=== PATIENT | male | born 1940 | race Caucasian/White ===

== ENCOUNTER 2017-02-12 16:09 | Inpatient (IN) | payer BC, OTHER ==
[~2017-02-12] VITALS: Ht 180.3 cm; Wt 83.0 kg
[2017-02-12] MEDS ORDERED: POTA10CA28 PO (16:34)
[2017-02-12] MEDS ORDERED: HYG25 PO (16:34)
[2017-02-12] MEDS ORDERED: LISI-725 PO (16:34)
[2017-02-12] MEDS ORDERED: WARF5TAB7 PO (16:34)
[2017-02-12] MEDS ORDERED: OMEP20TA PO (16:34)
[2017-02-12] MEDS ORDERED: INSU100I SC (16:34)
[2017-02-12] MEDS ORDERED: SERT50TA PO (16:34)
[2017-02-12] MEDS ORDERED: [UNRECOGNIZED DRUG - CODE] PO (16:34)
[2017-02-12] MEDS ORDERED: ASPI81TA28 PO (16:34)
[2017-02-12] MEDS ORDERED: SNTO30 TOP (16:34)
[2017-02-12] MEDS ORDERED: INSDGIPEN SC (16:34)
[2017-02-12] MEDS ORDERED: METF1000 PO (16:34)
[2017-02-12 17:22] LABS: BASO % 0.3 %; BASO ABS # 0.02 K/uL (0-0.2); COMPLETE YES; EOS % 2.4 %; HEMATOCRIT 37.1 % (42-52); IG% 0.4 %; LYMPH % 11.2 %; LYMPH ABS # 0.89 K/uL (1.2-3.4); MEAN CELL VOLUME 89.8 fL (80-100); MEAN CORPUSCULAR HGB CONC 34.5 g/dl (32-36); MEAN PLATELET VOLUME 10.4 fL (7.4-10.4); MONO % 9.2 %; NEUT % 76.5 %; PLATELET COUNT 360 K/uL (130-400); RED BLOOD COUNT 4.13 M/uL (4.7-6.1); WHITE BLOOD COUNT 7.97 K/uL (4.8-10.8)
[2017-02-12 17:41] LABS: BUN/CREATININE RATIO 18.6 (10-20); CALCIUM 8.6 mg/dl (8.5-10.1); CREATININE 1.2 mg/dl (0.60-1.40)
--- NOTE | 2017-02-12 17:41 | DIAGNOSTIC IMAGING REPORT ---
RIGHT FOOT MIN 3 VIEWS ROUTINE CLINICAL HISTORY: r foot 1st toe and 5th necrosis Right pain COMPARISON: None. DISCUSSION: Prior amputation distal phalanx great toe generalized degenerative change. Soft tissue vascular calcification. Small heel spur. No lytic or blastic process. No destructive process. IMPRESSION: Degenerative and postoperative changes including amputation distal phalanx great toe. No acute bony abnormality The above report was generated using voice recognition software. It may contain grammatical, syntax or spelling errors. Electronically signed by: Haseeb Carlson M.D. 02/12/2017 5:40 PM Dictated Date/Time: 02/12/2017 5:37 PM
[2017-02-12] MEDS ORDERED: VANCOMYCIN INJ 1,600 MG in SODIUM CHLORIDE 0.9% 500ML 500 ML IV STA (17:48)
[2017-02-12] MEDS ORDERED: ONDANSETRON INJ 2 MG/ML 2 ML VIAL IV PRN (19:30)
[2017-02-12] MEDS ORDERED: ACETAMINOPHEN 325 MG TAB PO PRN (19:30)
[2017-02-12] MEDS ORDERED: CMD5 PO (19:37)
[2017-02-12] MEDS ORDERED: LEVO1TAB33 PO (19:37)
[2017-02-12 19:40] VITALS: BP 129/78; PULSE 62; TEMP 36.6; O2SAT 97; Ht 180.3 cm; Wt 83.0 kg
[2017-02-12] MEDS ORDERED: GLUCAGON FOR INJ 1 MG VIAL SQ PRN (19:45)
[2017-02-12] MEDS ORDERED: GLUCOSE 40% GEL 15 GM TUBE PO PRN (19:45)
[2017-02-12] MEDS ORDERED: GLUCOSE 10 TABS/TUBE PO PRN (19:45)
[2017-02-12] MEDS ORDERED: DEXTROSE 50% 50 ML SYR IV PRN (19:45)
[2017-02-12 19:46] LABS: INR 2.1 (0.9-1.1); PROTHROMBIN TIME (PATIENT) 23.5 SECONDS (9.0-12.0)
--- NOTE | 2017-02-12 20:23 | History and Physical ---
History & Physical Date & Time of Service: Feb 12, 2017 at 19:38 Chief Complaint: Doc Referred For Iv Fluids,Infected Right Foot Primary Care Physician: Jennifer Ramires D.O. History of Present Illness Source: patient, spouse, clinic records This is a 76 y/o male with PMH of DM 2, PAD, hx left AKA for nonhealing wound, history of CVA, factor V Leiden, hx DVT on Coumadin, and other problems listed below who was sent to the ED by PCP Dr. Ramires for right foot necrosis. Patient underwent right 1st toe partial amputation by lifestyle director Dr. Cornelius at a surgical center in December 2016. states the the wound base turned black after the procedure with associated erythema, pain, swelling. Symptoms did not improve on Levaquin and was therefore hospitalized at [facility] from Feb 01- where he received IV antibiotics. states he was advised to see his vascular surgeon Dr. Davidson. Appointment was made for this FridayFeb 14. He was discharged on Levaquin, which was completed. Pt's states the toe was worsening and therefore he was started on another course of Levaquin called in by lifestyle director Dr. Lyle, but still has no improvement. His also notes necrotic area with surrounding erythema overlying right 5th distal metatarsal starting about 1.5 weeks ago. Has associated sweats, but did not take temp at home. Pt was seen by PCP Dr. Ramires today and sent to ER for further evaluation. He is wheelchair bound. Does not use prosthesis. Has occasional dry cough. BSG's have been low 100's at home. Denies chest pain, SOB, vomiting, change in bowel or bladder movements. reports recently discovered heart murmur which has not been evaluated by echo. Has h/o MRSA. Past Medical/Surgical History Medical Problems: (1) Chronic anticoagulation Status: Chronic (2) Compression fracture of spine Status: Chronic (3) CVA (cerebral vascular accident) Permanent Comment: embolic per records, 12/2016 Status: Chronic (4) Dementia Status: Chronic (5) Depression Status: Chronic (6) Diabetic neuropathy Status: Chronic (7) DM type 2 (diabetes mellitus, type 2) Status: Chronic (8) Dyslipidemia Status: Chronic (9) Factor V Leiden Status: Chronic (10) GERD (gastroesophageal reflux disease) Status: Chronic (11) History of DVT (deep vein thrombosis) Status: Chronic (12) HTN (hypertension) Status: Chronic (13) Hyperlipidemia Status: Chronic (14) Osteoarthritis Status: Chronic Surgical Problems: (1) History of left above knee amputation Permanent Comment: for nonhealing wound 05/2016 Status: Chronic (2) S/P peripheral artery angioplasty Permanent Comment: left anterior tibial artery 02/27/16 Status: Chronic Family History Diabetes mellitus SISTER FH: CAD (coronary artery disease) BROTHER Stroke FATHER MOTHER Social History Smoking Status: Never Smoker Alcohol Use: none Drug Use: none Marital Status: Housing status: lives with significant other Multi-Drug Resistant Organisms History of MDRO: No Allergies Coded Allergies: No Known Allergies (Unverified , 02/12/17) Home Medications Scheduled Aspirin (Aspirin Ec), 81 MG PO DAILY Chlorthalidone (Chlorthalidone), 25 MG PO DAILY Donepezil Hydrochloride (Donepezil Hcl), 23 MG PO DAILY Insulin Glargine (Lantus Solostar), 20 UNITS SC HS Insulin Lispro (Human) (Humalog), 6 UNITS SC AC Levofloxacin (Levaquin), 500 MG PO DAILY Lisinopril (Zestril), 20 MG PO DAILY Metformin Hcl (Glucophage), 1,000 MG PO BID Omeprazole (Omeprazole), 20 MG PO BID Potassium Chloride (Micro-K Ext Rel), 10 MEQ PO DAILY Sertraline (Zoloft), 50 MG PO DAILY Warfarin Sod (Jantoven), 5 MG PO DIRECTED Warfarin Sod (Coumadin), 7.5 MG PO UD Review of Systems Ten systems reviewed and negative except as noted in HPI. Physical Exam Vital Signs Date Time Temp Pulse Resp B/P (MAP) Pulse Ox O2 Delivery O2 Flow Rate FiO2 02/12/17 18:17 65 18 130/62 95 Room Air 02/12/17 16:15 36.4 74 16 150/76 94 General Appearance: WD/WN, no apparent distress Head: normocephalic, atraumatic Eyes: normal inspection, EOMI, sclerae normal ENT: hearing grossly normal, pharynx normal Neck: supple, trachea midline Respiratory/Chest: lungs clear, normal breath sounds, no respiratory distress, no accessory muscle use Cardiovascular: regular rate, rhythm, + systolic murmur Abdomen/GI: normal bowel sounds, non tender, soft Extremities/Musculoskelatal: no pedal edema, + pertinent finding (s/p left AKA , scar well healed. RLE no pretibial edema or calf tenderness. RLE warm, right DP pulse 1+) Neurologic/Psych: alert, normal mood/affect, oriented x 3 Skin: + pertinent finding (right 1st toe partially amputated, sutures in place , distal stump of toe with necrosis, + surrounding erythema and tenderness. lateral aspect of 5th distal metatarsal with necrosis and surrounding erythema and tenderness. no active drainage from either site.) Diagnostics Laboratory Results Results Past 24 Hours Test 02/12/17 17:00 Range/Units White Blood Count 7.97 4.8-10.8 K/uL Red Blood Count 4.13 4.7-6.1 M/uL Hemoglobin 12.8 14.0-18.0 g/dL Hematocrit 37.1 42-52 % Mean Corpuscular Volume 89.8 80-100 fL Mean Corpuscular Hemoglobin 31.0 25-34 pg Mean Corpuscular Hemoglobin Concent 34.5 32-36 g/dl Platelet Count 360 130-400 K/uL Mean Platelet Volume 10.4 7.4-10.4 fL Neutrophils (%) (Auto) 76.5 % Lymphocytes (%) (Auto) 11.2 % Monocytes (%) (Auto) 9.2 % Eosinophils (%) (Auto) 2.4 % Basophils (%) (Auto) 0.3 % Neutrophils # (Auto) 6.11 1.4-6.5 K/uL Lymphocytes # (Auto) 0.89 1.2-3.4 K/uL Monocytes # (Auto) 0.73 0.11-0.59 K/uL Eosinophils # (Auto) 0.19 0-0.5 K/uL Basophils # (Auto) 0.02 0-0.2 K/uL RDW Standard Deviation 45.6 36.4-46.3 fL RDW Coefficient of Variation 14.0 11.5-14.5 % Immature Granulocyte % (Auto) 0.4 % Immature Granulocyte # (Auto) 0.03 0.00-0.02 K/uL Sodium Level 139 136-145 mmol/L Potassium Level 4.0 3.5-5.1 mmol/L Chloride Level 104 98-107 mmol/L Carbon Dioxide Level 31 21-32 mmol/L Anion Gap 4.0 3-11 mmol/L Blood Urea Nitrogen 22 7-18 mg/dl Creatinine 1.20 0.60-1.40 mg/dl Est Creatinine Clear Calc Drug Dose 55.8 ml/min Estimated GFR () 67.7 Estimated GFR (Non- 58.4 BUN/Creatinine Ratio 18.6 10-20 Random Glucose 220 70-99 mg/dl Calcium Level 8.6 8.5-10.1 mg/dl Diagnostic Radiology RIGHT FOOT MIN 3 VIEWS ROUTINE CLINICAL HISTORY: r foot 1st toe and 5th necrosis Right pain COMPARISON: None. DISCUSSION: Prior amputation distal phalanx great toe generalized degenerative change. Soft tissue vascular calcification. Small heel spur. No lytic or blastic process. No destructive process. IMPRESSION: Degenerative and postoperative changes including amputation distal phalanx great toe. No acute bony abnormality Impression Assessment and Plan RIGHT FOOT NECROSIS, CELLULITIS In setting of PAD, DM 2 (controlled in past, repeat A1c in AM) S/p right 1st toe partial amputation by podiatry Dr. Cornelius in December 2016, recently hospitalized at [facility] for IV abx, failed outpatient tx with Levaquin Afebrile, no leukocytosis X-ray shows no evidence of bony involvement IV vancomycin given in ER Will continue vancomycin and add Zosyn Check wound culture Check arterial doppler Consult ortho, discussed with Dr. Coronado- patient will be seen in AM HEART MURMUR Recently discovered per family, no recent echo done Check echo HYPERTENSION BP is stable Continue chlorthalidone and lisinopril DM TYPE 2 A1c was 6.3 in 10/2016 Hold metformin Continue home Lantus Novolog sliding scale HISTORY OF CVA Continue aspirin, statin DEMENTIA Continue donepezil HX DVT, FACTOR V LEIDEN, HX EMBOLIC STROKE PER RECORDS DVT PROPHYLAXIS On Coumadin, INR 2.1- will hold Coumadin tomorrow AM until ortho evaluates in case patient needs a procedure CODE STATUS Full no mech ventilation per my discussion with patient and at bedside DISPOSITION Med/ surg Lives with Chanel Justice (wishes to be updated by phone at [phone]) Follows with Dr. Ramires for primary care Patient seen in collaboration with Dr. Ward. Please see his addendum. Agree with above H and P. Briefly 76M presents with infected right big toe amputation site and also black eschar on right lateral foot. No fevers. No pain. No sob or chest pain. Hemodynamics stable. 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 Right big toe amputation site blackened on top and erythema below.non tender a/p Infected right toe amputation site gangrenous and necrotic Started on iv abx f/u cx ortho consulted will follow right lower extremity arterial US DM Lantus and iss will monitor VTE Prophylaxis VTE Risk Assessment Done? Y/N: Yes Risk Level: Moderate Given or contraindicated: Warfarin (Coumadin)
[2017-02-12] MEDS ORDERED: PIPERACILL/TAZOBAC IV 3.375 GM in DEXTROSE 5% 100ML IV ONE (20:30)
--- NOTE | 2017-02-12 20:39 | EMERGENCY ROOM VISIT NOTE ---
History Report prepared by Scott: Cecil Muller Under the Supervision of: Dr. Guicho Greene D.O. First contact with patient: 16:27 Chief Complaint: WOUND INFECTION Stated Complaint: DOC REFERRED FOR IV FLUIDS,INFECTED RIGHT FOOT History of Present Illness The patient is a 76 year old male who presents to the Emergency Room with complaints of a worsening infected right great toe for the past three weeks. The patient states that it happened after an amputation of the distal toe due to diabetes. The patient states that his blood sugars are well controlled, and he is currently on Levaquin. The patient states that the toe started to become black soon after the surgery. Pt denies headache, change in vision, fevers, chest pain, shortness of breath, nausea, vomiting, diarrhea, and pain with urination. Source of History: patient Onset: three weeks ago Position: toe(s) (right great toe) Quality: other (infection) Timing: worsening Review of Systems See HPI for pertinent positives & negatives. A total of 10 systems reviewed and were otherwise negative. Past Medical & Surgical Medical Problems: (1) Cellulitis (2) Chronic anticoagulation (3) Compression fracture of spine (4) CVA (cerebral vascular accident) (5) Dementia (6) Depression (7) Diabetic neuropathy (8) DM type 2 (diabetes mellitus, type 2) (9) Dyslipidemia (10) Factor V Leiden (11) GERD (gastroesophageal reflux disease) (12) History of DVT (deep vein thrombosis) (13) HTN (hypertension) (14) Hyperlipidemia (15) Osteoarthritis Surgical Problems: (1) History of left above knee amputation (2) S/P peripheral artery angioplasty Social History Smoking Status: Never Smoker Marital Status: Housing Status: lives with family Occupation Status: retired Current/Historical Medications Scheduled Aspirin (Aspirin Ec), 81 MG PO DAILY Chlorthalidone (Chlorthalidone), 25 MG PO DAILY Donepezil Hydrochloride (Donepezil Hcl), 23 MG PO DAILY Insulin Glargine (Lantus Solostar), 20 UNITS SC HS Insulin Lispro (Human) (Humalog), 6 UNITS SC AC Levofloxacin (Levaquin), 500 MG PO DAILY Lisinopril (Zestril), 20 MG PO DAILY Metformin Hcl (Glucophage), 1,000 MG PO BID Omeprazole (Omeprazole), 20 MG PO BID Potassium Chloride (Micro-K Ext Rel), 10 MEQ PO DAILY Sertraline (Zoloft), 50 MG PO DAILY Warfarin Sod (Jantoven), 5 MG PO DIRECTED Warfarin Sod (Coumadin), 7.5 MG PO UD Allergies Coded Allergies: No Known Allergies (Unverified , 02/12/17) Physical Exam Vital Signs Date Time Temp Pulse Resp B/P (MAP) Pulse Ox O2 Delivery O2 Flow Rate FiO2 02/12/17 18:17 65 18 130/62 95 Room Air 02/12/17 16:15 36.4 74 16 150/76 94 Physical Exam GENERAL: Sitting up in bed, alert, well appearing, well nourished, no distress, non-toxic EYE EXAM: normal conjunctiva, PERRL and EOM's grossly intact OROPHARYNX: no exudate, no erythema, lips, buccal mucosa, and tongue normal and mucous membranes are moist NECK: supple, no nuchal rigidity, no adenopathy, non-tender LUNGS: Clear to auscultation. Normal chest wall mechanics HEART: no murmurs, S1 normal and S2 normal ABDOMEN: abdomen soft, non-tender, normo-active bowel sounds, no masses, no rebound or guarding. UPPER EXTREMITIES: upper extremities are grossly normal. LOWER EXTREMITIES: Right lower extremity with amputation of the first toe with a necrotic base and clear drainage. Sutures in place. Right fifth digit with necrosis at the distal aspect of the MTP with surrounding erythema. Left above knee amputation. NEURO EXAM: Normal sensorium, cranial nerves II-XII grossly intact, normal speech, no gross weakness of arms. Medical Decision & Procedures ER Provider Diagnostic Interpretation: Radiology results as stated below per my review and the radiologist's interpretation: RIGHT FOOT MIN 3 VIEWS ROUTINE CLINICAL HISTORY: r foot 1st toe and 5th necrosis Right pain COMPARISON: None. DISCUSSION: Prior amputation distal phalanx great toe generalized degenerative change. Soft tissue vascular calcification. Small heel spur. No lytic or blastic process. No destructive process. IMPRESSION: Degenerative and postoperative changes including amputation distal phalanx great toe. No acute bony abnormality The above report was generated using voice recognition software. It may contain grammatical, syntax or spelling errors. Electronically signed by: Haseeb Carlson M.D. 02/12/2017 5:40 PM Dictated Date/Time: 02/12/2017 5:37 PM Laboratory Results 02/12/17 17:00 Red Blood Count 4.13, Mean Corpuscular Volume 89.8, Mean Corpuscular Hemoglobin 31.0, Mean Corpuscular Hemoglobin Concent 34.5, Mean Platelet Volume 10.4, Neutrophils (%) (Auto) 76.5, Lymphocytes (%) (Auto) 11.2, Monocytes (%) (Auto) 9.2, Eosinophils (%) (Auto) 2.4, Basophils (%) (Auto) 0.3, Neutrophils # (Auto) 6.11, Lymphocytes # (Auto) 0.89, Monocytes # (Auto) 0.73, Eosinophils # (Auto) 0.19, Basophils # (Auto) 0.02 02/12/17 17:00 Test 02/12/17 17:00 White Blood Count 7.97 K/uL (4.8-10.8) Red Blood Count 4.13 M/uL (4.7-6.1) Hemoglobin 12.8 g/dL (14.0-18.0) Hematocrit 37.1 % (42-52) Mean Corpuscular Volume 89.8 fL (80-100) Mean Corpuscular Hemoglobin 31.0 pg (25-34) Mean Corpuscular Hemoglobin Concent 34.5 g/dl (32-36) Platelet Count 360 K/uL (130-400) Mean Platelet Volume 10.4 fL (7.4-10.4) Neutrophils (%) (Auto) 76.5 % Lymphocytes (%) (Auto) 11.2 % Monocytes (%) (Auto) 9.2 % Eosinophils (%) (Auto) 2.4 % Basophils (%) (Auto) 0.3 % Neutrophils # (Auto) 6.11 K/uL (1.4-6.5) Lymphocytes # (Auto) 0.89 K/uL (1.2-3.4) Monocytes # (Auto) 0.73 K/uL (0.11-0.59) Eosinophils # (Auto) 0.19 K/uL (0-0.5) Basophils # (Auto) 0.02 K/uL (0-0.2) RDW Standard Deviation 45.6 fL (36.4-46.3) RDW Coefficient of Variation 14.0 % (11.5-14.5) Immature Granulocyte % (Auto) 0.4 % Immature Granulocyte # (Auto) 0.03 K/uL (0.00-0.02) Prothrombin Time 23.5 SECONDS (9.0-12.0) Prothromb Time International Ratio 2.1 (0.9-1.1) Anion Gap 4.0 mmol/L (3-11) Est Creatinine Clear Calc Drug Dose 55.8 ml/min Estimated GFR () 67.7 Estimated GFR (Non- 58.4 BUN/Creatinine Ratio 18.6 (10-20) Calcium Level 8.6 mg/dl (8.5-10.1) Laboratory results per my review. Medications Administered Medications (Trade) Dose Ordered Sig/Jose Route Start Time Stop Time Status Last Admin Dose Admin Vancomycin HCl 1600 mg/Sodium Chloride 532 ml @ 200 mls/hr ONE STAT IV 02/12/17 17:48 02/12/17 20:27 DC 02/12/17 18:13 200 MLS/HR ED Course ED COURSE: Vital signs were reviewed and showed situational hypertension The patients medical record was reviewed The above diagnostic studies were performed and reviewed. ED treatments and interventions as stated above. 1627: The patient was evaluated in room C3. A complete history and physical examination was performed. 1748: Vancomycin HCl 1600mg/ Sodium Chloride 532ml @ 200mls/hr 1751: Upon reevaluation, the patient is doing well.I discussed my findings with the patient and he understands and agrees with the treatment plan. Based on the patients age, coexisting illnesses, exam and lab findings the decision to treat as an inpatient was made. The patient remained stable while under my care. The patient will be evaluated for further management. 1808: I reviewed the patient's case with Rina Browning PA-C. She will evaluate the patient for further management. Medical Decision Differential diagnosis includes etiologies such as cellulitis, abscess, MRSA infection, DVT, necrotizing fasciitis, dermatitis, drug eruption, as well as others were entertained. Patient is a 76-year-old male that presents to ER for necrosis on his right lower extremity. Patient is a diabetic and had a partial amputation of his right first toe. Patient has been on antibiotics. Toe has been becoming more necrotic surrounding erythema. Patient now has erythema and necrosis at the distal aspect of his fifth metatarsal. CBC able BMP is unremarkable. INR is normal at 2.1. X-ray shows no obvious osteo. With the necrosis and surrounding erythema his given IV vancomycin and admitted to internal medicine for further evaluation by orthopedics. Patient did not want to follow-up with [place] any longer. Medication Reconcilliation Current Medication List: was personally reviewed by me Blood Pressure Screening Patient's blood pressure: Elevated blood pressure Blood pressure disposition: Elevated BP felt to be situational Consults Time Called: 1750 Consulting Physician: Rina Browning PA-C Returned Call: 1808 I reviewed the patient's case with Rina Browning PA-C. She will evaluate the patient for further management. Impression Primary Impression: Cellulitis Additional Impression: Toe necrosis Scribe Attestation The scribe's documentation has been prepared under my direction and personally reviewed by me in its entirety. I confirm that the note above accurately reflects all work, treatment, procedures, and medical decision making performed by me. Departure Information Dispostion Being Evaluated By Hospitalist Referrals Jennifer Ramires D.O. (PCP) Patient Instructions My [facility] Problem Qualifiers Primary Impression: Cellulitis Site of cellulitis: unspecified site Qualified Codes: L03.90 - Cellulitis, unspecified
[2017-02-12] MEDS ORDERED: VANCOMYCIN CONSULT ACTIVE PRN (20:45)
[2017-02-12] MEDS ORDERED: PIPERACILL/TAZOBAC CONSULT ACTIVE PRN (20:45)
[2017-02-12] MEDS: INSULIN ASPART 100 UNITS/ML 3 ML PEN SC SCH (21:00)
--- NOTE | 2017-02-12 22:52 | Pharmacy Progress Note ---
Pharmacy Abx Initial Consult Date of Service Feb 12, 2017. Pharmacy Dosing Scope Date of Consult: 02/12/17 Consultation requested by: Lynn Browning Pharmacy is consulted to continue Vancomycin/Zosyn IV dosing therapy, order appropriate labs and adjust drug dose/frequency. Subjective The patient is a 76 year old male admitted on Feb 12, 2017 at 18:22 with Cellulitis post (R)1st toe partial amputation. 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 He has history of MRSA and hx left AKA for nonhealing wound. Lynn Browning PA consulted pharmacy to dose Vancomycin and Zosyn upon admission. Objective Height (Feet): 5 Height (Inches): 11.00 Weight (Kilograms): 83.000 Vital Signs (Past 12Hrs) Vital Signs Past 12 Hours Date Time Temp Pulse Resp B/P (MAP) Pulse Ox O2 Delivery O2 Flow Rate FiO2 02/12/17 19:40 36.6 62 20 129/78 97 Room Air 02/12/17 19:16 66 18 126/67 96 Room Air 02/12/17 18:17 65 18 130/62 95 Room Air 02/12/17 16:15 36.4 74 16 150/76 94 Lab Results (24Hrs) Laboratory Tests (24 Hours) Test 02/12/17 17:00 White Blood Count 7.97 K/uL (4.8-10.8) Red Blood Count 4.13 M/uL (4.7-6.1) L Hemoglobin 12.8 g/dL (14.0-18.0) L Hematocrit 37.1 % (42-52) L Mean Corpuscular Volume 89.8 fL (80-100) Mean Corpuscular Hemoglobin 31.0 pg (25-34) Mean Corpuscular Hemoglobin Concent 34.5 g/dl (32-36) Platelet Count 360 K/uL (130-400) Mean Platelet Volume 10.4 fL (7.4-10.4) Neutrophils (%) (Auto) 76.5 % Lymphocytes (%) (Auto) 11.2 % Monocytes (%) (Auto) 9.2 % Eosinophils (%) (Auto) 2.4 % Basophils (%) (Auto) 0.3 % Neutrophils # (Auto) 6.11 K/uL (1.4-6.5) Lymphocytes # (Auto) 0.89 K/uL (1.2-3.4) L Monocytes # (Auto) 0.73 K/uL (0.11-0.59) H Eosinophils # (Auto) 0.19 K/uL (0-0.5) Basophils # (Auto) 0.02 K/uL (0-0.2) Risk Factors for Resistance * History of infection with a multidrug-resistant organism: MRSA * Antimicrobial use within the last 90 days -Levaquin PO Assessment & Plan Assessment 76 year old male with necrotic toe infection/cellulitis Plan Vancomycin and Zosyn for treatment of cellulitis Vancomycin IV * Loading dose: 1600 mg (19 mg/kg) * Maintenance dose: 1250mg IV (15 mg/kg) every 16 hours * Goal trough level for cellulitis : 15-20 mcg/mL * Trough level ordered prior to 1800 dose on 02/14/17 Piperacillin/tazobactam * 3.375 g bolus administered over 30 minutes, then 3.375 g IV extended infusion every 8 hours for CrCl greater than 20ml/min Pharmacy will continue to follow and will adjust dose/frequency as necessary. Thank you.
--- NOTE | 2017-02-12 22:59 | DIAGNOSTIC IMAGING REPORT ---
RIGHT ART DOP DUPLEX LW EXT UNI CLINICAL HISTORY: right 1st toe and distal 5th metatarsal necrosis Right ischemia TECHNIQUE: Arterial Doppler: FINDINGS: Limited study technically due to calcified vessels. Waveforms in velocity characteristics of the right thigh are unremarkable. Study of the arterial structures inferior to the near nondiagnostic COMPARISON STUDY: None IMPRESSION: 1. Limited study due to calcified vessels. 2. No significant stenotic process of the thigh arterial structures. 3. Nondiagnostic arterial structures of the arterial structures of the right lower leg due to vascular calcification/incompressibility. The above report was generated using voice recognition software. It may contain grammatical, syntax or spelling errors. Electronically signed by: Haseeb Carlson M.D. 02/12/2017 10:57 PM Dictated Date/Time: 02/12/2017 10:55 PM
[2017-02-12] MEDS: INSULIN GLARGINE SOLOSTAR 100 UNITS/ML 3 ML PEN SC SCH (23:12)
[2017-02-12] MEDS: PANTOprazole SOD 40 MG TAB PO SCH (23:12)
[2017-02-13] VITALS: BP 132/81; PULSE 78; TEMP 36.8; O2SAT 94
[2017-02-13] MEDS: PIPERACILL/TAZOBAC IV 3.375 GM in DEXTROSE 5% 100ML IV SCH ×3 (02:11→18:06)
[2017-02-13 07:00] LABS: HEMATOCRIT 35.7 % (42-52); MEAN CELL VOLUME 89.9 fL (80-100); MEAN CORPUSCULAR HEMOGLOBIN 31.2 pg (25-34); MEAN CORPUSCULAR HGB CONC 34.7 g/dl (32-36); MEAN PLATELET VOLUME 10.7 fL (7.4-10.4); PLATELET COUNT 344 K/uL (130-400); RED BLOOD COUNT 3.97 M/uL (4.7-6.1); WHITE BLOOD COUNT 7.15 K/uL (4.8-10.8)
[2017-02-13] MEDS: PANTOprazole SOD 40 MG TAB PO SCH ×2 (07:01→20:23)
[2017-02-13] MEDS: POTASSIUM CHLORIDE 10 MEQ TABCR PO SCH (07:01)
[2017-02-13] MEDS: LISINOPRIL 20 MG TAB PO SCH (07:02)
[2017-02-13] MEDS: SERTRALINE HCL 50 MG TAB PO SCH (07:02)
[2017-02-13] MEDS: ASPIRIN 81 MG ECTAB PO SCH (07:02)
[2017-02-13] MEDS: CHLORTHALIDONE 25 MG TAB PO SCH (07:02)
[2017-02-13 07:20] LABS: ESTIMATED AVERAGE GLUCOSE 131 mg/dl; HA1C FLAG Normal (Normal)
[2017-02-13 07:23] LABS: INR 2.3 (0.9-1.1); PROTHROMBIN TIME (PATIENT) 25.9 SECONDS (9.0-12.0)
[2017-02-13 07:32] LABS: BUN/CREATININE RATIO 19.6 (10-20); CREATININE 0.96 mg/dl (0.60-1.40); POTASSIUM 3.7 mmol/L (3.5-5.1)
[2017-02-13 07:54] VITALS: BP 132/75; PULSE 62; TEMP 36.6; O2SAT 97
[2017-02-13] MEDS: INSULIN ASPART 100 UNITS/ML 3 ML PEN SC SCH ×4 (09:06→20:06)
[2017-02-13] MEDS: VANCOMYCIN INJ 1,250 MG in SODIUM CHLORIDE 0.9% 250ML 250 ML IV SCH (09:51)
[2017-02-13 11:46] VITALS: O2SAT 97
[2017-02-13] MEDS ORDERED: NURSING DECISION MEDICATION ORDER SCH (12:00)
[2017-02-13] MEDS ORDERED: MICONAZOLE NITRATE POWDER 43 GM EXT PRN (13:00)
--- NOTE | 2017-02-13 13:26 | ECHOCARDIOGRAM REPORT ---
*NOTICE TO RECEIVING LIBERTARIAN AGENCY This information is strictly Confidential and protected under [place] law. [place] law prohibits you from making any further disclosure of this information unless further disclosure is expressly permitted by the written consent of the person to whom it pertains or is authorized by law. A general authorization for the release of medical or other information is not sufficient for this purpose. Hospital accepts no responsibility if the information is made available to any other person, INCLUDING THE PATIENT. Interpretation Summary * Name: FEROZ HICKEY Study Date: 02/13/2017 07:00 AM BP: 132/81 mmHg * Patient Location: [id number]\S\E411\S\1 HR: 78 * : 1940 (M/d/yyyy) Gender: Male Height: 71 in * Age: 76 yrs Ethnicity: CA Weight: 182 lb * Ordering Physician: Rina Browning * Referring Physician: Jennifer Ramires D.O. * Performed By: Ebonie Benavides RDCS * * Reason For Study: MURMURS * BSA: 2.0 m2 * -- Conclusions -- * Doppler and two dimentional ultrasound are discoordinate. Pt. most likely has moderate calcific aortic stenosis. * There is mild concentric left ventricular hypertrophy. * Ejection Fraction = 60-65%. * The right ventricular systolic function is normal. * There is trace mitral regurgitation. Procedure Details * A complete two-dimensional transthoracic echocardiogram was performed (2D, M-mode, Doppler and color flow Doppler). Left Ventricle * The left ventricle is normal in size. * There is mild concentric left ventricular hypertrophy. * Ejection Fraction = 60-65%. * Left ventricular systolic function is normal. Right Ventricle * The right ventricle is normal size. * The right ventricular systolic function is normal. Atria * The left atrial size is normal. * Right atrial size is normal. * The interatrial septum is intact with no evidence for an atrial septal defect. Mitral Valve * The mitral valve leaflets appear thickened, but open well. * There is trace mitral regurgitation. Tricuspid Valve * The tricuspid valve is not well visualized, but is grossly normal. * Significant tricuspid regurgitation is absent. Aortic Valve * Doppler and two dimentional ultrasound are discoordinate. Pt. most likely has moderate calcific aortic stenosis. Great Vessels * The aortic root and proximal ascending aorta are normal sized. Pericardium/Pleural * There is no pericardial effusion. Left Ventricular Diastolic Function * Grade I diastolic dysfunction, (abnormal relaxation pattern). MMode 2D Measurements and Calculations IVSd 1.6 cm IVSs 2.1 cm LVIDd 3.2 cm LVIDs 2.2 cm LVPWd 1.4 cm LVPWs 1.7 cm IVS/LVPW 1.1 FS 32.3 % EDV(Teich) 40.8 ml ESV(Teich) 15.5 ml EF(Teich) 61.9 % EDV(cubed) 32.6 ml ESV(cubed) 10.1 ml EF(cubed) 68.9 % % IVS thick 30.8 % % LVPW thick 20.3 % LV mass(C)d 174.8 grams LV mass(C)dI 86.3 grams/m\S\2 LV mass(C)s 170.4 grams LV mass(C)sI 84.1 grams/m\S\2 SV(Teich) 25.2 ml SI(Teich) 12.5 ml/m\S\2 SV(cubed) 22.5 ml SI(cubed) 11.1 ml/m\S\2 Ao root diam 4.0 cm Ao root area 12.8 cm\S\2 LA dimension 3.7 cm LA/Ao 0.91 LVAd ap4 35.0 cm\S\2 LVLd ap4 9.2 cm EDV(MOD-sp4) 108.4 ml EDV(sp4-el) 113.4 ml LVAs ap4 18.0 cm\S\2 LVLs ap4 7.2 cm ESV(MOD-sp4) 38.0 ml ESV(sp4-el) 38.4 ml EF(MOD-sp4) 65.0 % EF(sp4-el) 66.2 % LVAd ap2 27.9 cm\S\2 LVLd ap2 9.2 cm EDV(MOD-sp2) 69.9 ml EDV(sp2-el) 72.2 ml LVAs ap2 15.0 cm\S\2 LVLs ap2 7.7 cm ESV(MOD-sp2) 24.9 ml ESV(sp2-el) 25.0 ml EF(MOD-sp2) 64.3 % EF(sp2-el) 65.4 % LVLd %diff 0.02 % EDV(MOD-bp) 87.8 ml LVLs %diff 6.9 % ESV(MOD-bp) 31.3 ml EF(MOD-bp) 64.4 % SV(MOD-sp4) 70.4 ml SI(MOD-sp4) 34.8 ml/m\S\2 SV(MOD-sp2) 44.9 ml SI(MOD-sp2) 22.2 ml/m\S\2 SV(MOD-bp) 56.5 ml SI(MOD-bp) 27.9 ml/m\S\2 SV(sp4-el) 75.0 ml SI(sp4-el) 37.0 ml/m\S\2 SV(sp2-el) 47.2 ml SI(sp2-el) 23.3 ml/m\S\2 Doppler Measurements and Calculations MV E max fede 94.9 cm/sec MV A max fede 132.1 cm/sec MV E/A 0.72 MV dec time 0.36 sec Ao V2 max 206.5 cm/sec Ao max PG 17.1 mmHg Ao max PG (full) 12.9 mmHg Ao V2 mean 142.9 cm/sec Ao mean PG 9.5 mmHg Ao mean PG (full) 7.3 mmHg Ao V2 VTI 54.2 cm LV V1 max PG 4.2 mmHg LV V1 mean PG 2.2 mmHg LV V1 max 101.9 cm/sec LV V1 mean 70.1 cm/sec LV V1 VTI 28.6 cm SV(Ao) 692.4 ml SI(Ao) 341.8 ml/m\S\2 TR max fede 132.9 cm/sec
--- NOTE | 2017-02-13 13:53 | ORTHOPEDIC CONSULTATION ---
DATE OF CONSULTATION: 02/12/2017 DATE OF CONSULTATION: 02/12/2017 CHIEF COMPLAINT: Necrosis great toe and fifth metatarsal head area. HISTORY OF PRESENT ILLNESS: This is a longstanding diabetic. 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 He had surgery done by a home companion in [place] 2 weeks ago, was admitted to the hospital here having failed treatment with IV antibiotics in [place] over the last 2 weeks. PHYSICAL EXAMINATION: EXTREMITIES: Reveals sutures remaining in the great toe, but black necrotic skin to the level of the metatarsophalangeal joint. He also has a 1.5 x 3 cm oval area of necrosis about the lateral aspect of the fifth ray at the level of the metatarsal head. ASSESSMENT: Avascular changes right foot. PLAN: We will consult vascular surgery to see if any sort of revascularization procedure is possible, but likely from an orthopedic standpoint the patient will require at least a transmetatarsal amputation. Thank you for the consultation. We will continue to follow.
[2017-02-13 15:01] VITALS: BP 132/79; PULSE 63; TEMP 36.6; O2SAT 95
--- NOTE | 2017-02-13 16:46 | Progress Note ---
Internal Med Progress Note Date of Service: Feb 13, 2017. Provider Documentation: SUBJECTIVE: resting comfortably afebrile no nausea no pain no sob hemodynamics stable OBJECTIVE: Vital Signs-as noted below Exam: General-alert and oriented. Not in distress ENT-normal hearing Neck-no neck masses Lungs-cta b/l no wheezing no crackles present Heart-s1 and s2 heard regular rhythm, no murmurs Abdomen-soft bowel sounds present non tender no distension Extremities s/p Left AKA. Right big toe amputation site blackened and necrotic Neuro-alert and oriented moves extremities Lab data as noted below. ASSESSMENT & PLAN: RIGHT FOOT NECROSIS, CELLULITIS In setting of PAD, DM 2 (controlled in past, repeat A1c in AM) S/p right 1st toe partial amputation by podiatry Dr. Cornelius in December 2016, recently hospitalized at [facility] for IV abx, failed outpatient tx with Levaquin started on iv vanco and Zosyn arterial US unremarkable consulted ortho recommends a transmetatarsal amputation but to await vascular opinion regarding any revascularization. HEART MURMUR Recently discovered per family, no recent echo done echo moderate calccified Ef 60-65% HYPERTENSION BP is stable on chlorthalidone and lisinopril DM TYPE 2 A1c was 6.3 in 10/2016 Holding metformin Contining home Lantus Novolog sliding scale will monitor HISTORY OF CVA on aspirin, statin DEMENTIA on donepezil HX DVT, FACTOR V LEIDEN, HX EMBOLIC STROKE PER RECORDS DVT PROPHYLAXIS On Coumadin, INR 2.3- holding Coumadin for any procedures CODE STATUS Full no mech ventilation per h and p DISPOSITION to be determined Lives with Chanel Justice (wishes to be updated by phone at [phone]) Follows with Dr. Ramires for primary care Vital Signs: Date Time Temp Pulse Resp B/P (MAP) Pulse Ox O2 Delivery O2 Flow Rate FiO2 02/13/17 15:01 36.6 63 20 132/79 (96) 95 Room Air 02/13/17 11:46 97 Room Air 02/13/17 11:38 Room Air 02/13/17 07:54 36.6 62 22 132/75 (94) 97 Room Air 02/13/17 00:00 36.8 78 18 132/81 (98) 94 Room Air 02/13/17 00:00 Room Air 02/12/17 19:40 36.6 62 20 129/78 97 Room Air 02/12/17 19:16 66 18 126/67 96 Room Air 02/12/17 18:17 65 18 130/62 95 Room Air Lab Results: Results Past 24 Hours Test 02/12/17 17:00 02/12/17 21:16 02/13/17 06:04 02/13/17 07:49 Range/Units White Blood Count 7.97 7.15 4.8-10.8 K/uL Red Blood Count 4.13 3.97 4.7-6.1 M/uL Hemoglobin 12.8 12.4 14.0-18.0 g/dL Hematocrit 37.1 35.7 42-52 % Mean Corpuscular Volume 89.8 89.9 80-100 fL Mean Corpuscular Hemoglobin 31.0 31.2 25-34 pg Mean Corpuscular Hemoglobin Concent 34.5 34.7 32-36 g/dl Platelet Count 360 344 130-400 K/uL Mean Platelet Volume 10.4 10.7 7.4-10.4 fL Neutrophils (%) (Auto) 76.5 % Lymphocytes (%) (Auto) 11.2 % Monocytes (%) (Auto) 9.2 % Eosinophils (%) (Auto) 2.4 % Basophils (%) (Auto) 0.3 % Neutrophils # (Auto) 6.11 1.4-6.5 K/uL Lymphocytes # (Auto) 0.89 1.2-3.4 K/uL Monocytes # (Auto) 0.73 0.11-0.59 K/uL Eosinophils # (Auto) 0.19 0-0.5 K/uL Basophils # (Auto) 0.02 0-0.2 K/uL RDW Standard Deviation 45.6 45.8 36.4-46.3 fL RDW Coefficient of Variation 14.0 13.9 11.5-14.5 % Immature Granulocyte % (Auto) 0.4 % Immature Granulocyte # (Auto) 0.03 0.00-0.02 K/uL Prothrombin Time 23.5 25.9 9.0-12.0 SECONDS Prothromb Time International Ratio 2.1 2.3 0.9-1.1 Sodium Level 139 139 136-145 mmol/L Potassium Level 4.0 3.7 3.5-5.1 mmol/L Chloride Level 104 103 98-107 mmol/L Carbon Dioxide Level 31 29 21-32 mmol/L Anion Gap 4.0 7.0 3-11 mmol/L Blood Urea Nitrogen 22 19 7-18 mg/dl Creatinine 1.20 0.96 0.60-1.40 mg/dl Est Creatinine Clear Calc Drug Dose 55.8 69.7 ml/min Estimated GFR () 67.7 88.6 Estimated GFR (Non- 58.4 76.5 BUN/Creatinine Ratio 18.6 19.6 10-20 Random Glucose 220 158 70-99 mg/dl Calcium Level 8.6 9.0 8.5-10.1 mg/dl Bedside Glucose 108 149 70-99 mg/dl Estimated Average Glucose 131 mg/dl Hemoglobin A1c 6.2 4.5-5.6 % Test 02/13/17 11:39 02/13/17 16:16 Range/Units Bedside Glucose 163 106 70-99 mg/dl Microbiology Results 02/13/17 Blood Culture, Received Pending 02/12/17 Blood Culture, Received Pending
[2017-02-13] MEDS: INSULIN GLARGINE SOLOSTAR 100 UNITS/ML 3 ML PEN SC SCH (20:25)
[2017-02-13 23:40] VITALS: BP 145/82; PULSE 63; TEMP 36.8; O2SAT 93
[2017-02-14] MEDS: VANCOMYCIN INJ 1,250 MG in SODIUM CHLORIDE 0.9% 250ML 250 ML IV SCH ×2 (03:01→18:35)
[2017-02-14] MEDS: PIPERACILL/TAZOBAC IV 3.375 GM in DEXTROSE 5% 100ML IV SCH ×3 (03:02→18:36)
[2017-02-14 07:17] VITALS: BP 146/82; PULSE 56; TEMP 36.5; O2SAT 94
[2017-02-14] MEDS: POTASSIUM CHLORIDE 10 MEQ TABCR PO SCH (07:46)
[2017-02-14] MEDS: CHLORTHALIDONE 25 MG TAB PO SCH (07:46)
[2017-02-14] MEDS: ASPIRIN 81 MG ECTAB PO SCH (07:46)
[2017-02-14] MEDS: PANTOprazole SOD 40 MG TAB PO SCH ×2 (07:47→21:40)
[2017-02-14] MEDS: SERTRALINE HCL 50 MG TAB PO SCH (07:47)
[2017-02-14] MEDS: LISINOPRIL 20 MG TAB PO SCH (07:47)
[2017-02-14] MEDS: INSULIN ASPART 100 UNITS/ML 3 ML PEN SC SCH ×4 (08:40→21:39)
--- NOTE | 2017-02-14 10:19 | Surgery Consultation ---
Consultation Date of Service Feb 14, 2017. Chief Complaint RLE gangrene History of Present Illness The patient is a 76 year old male with hx of DMII, HTN, PAD, left BKA d/t nonhealing wounds, admitted for gangrenous changes to R foot wounds. Pt states he underwent LLE BKA in 03/17 after nonhealing wounds of L foot. Also had RLE angiography without intervention by Dr Davidson about [address] Davidson told him that there was blood flow to his foot at that time and did not need any surgery. Pt states his R foot developed a wound a few weeks ago and he had a pattern drum maker perform a partial amputation of his great toe, which has been nonhealing for past 2 weeks. Pt states his toe wound became black and his lateral foot developed a black area as well. Uses his RLE for ambulation and transfers. Denies pain in RLE. Denies CATHERINE, fever, chills, chest pain, SOB, adb pain, N/V, rest pain, other complaints. Arterial US demonstrates diffuse arterial disease without focal stenosis. Demonstrates adequate flow to RLE. Vitals Vital Signs Past 12 Hours Date Time Temp Pulse Resp B/P (MAP) Pulse Ox O2 Delivery O2 Flow Rate FiO2 02/14/17 09:45 Room Air 02/14/17 07:17 36.5 56 20 146/82 (103) 94 02/14/17 00:00 Room Air 02/13/17 23:40 36.8 63 20 145/82 (103) 93 Room Air Allergies Coded Allergies: No Known Allergies (Unverified , 02/12/17) Home Medications Scheduled Aspirin (Aspirin Ec), 81 MG PO DAILY Chlorthalidone (Chlorthalidone), 25 MG PO DAILY Donepezil Hydrochloride (Donepezil Hcl), 23 MG PO DAILY Insulin Glargine (Lantus Solostar), 20 UNITS SC HS Insulin Lispro (Human) (Humalog), 6 UNITS SC AC Levofloxacin (Levaquin), 500 MG PO DAILY Lisinopril (Zestril), 20 MG PO DAILY Metformin Hcl (Glucophage), 1,000 MG PO BID Omeprazole (Omeprazole), 20 MG PO BID Potassium Chloride (Micro-K Ext Rel), 10 MEQ PO DAILY Sertraline (Zoloft), 50 MG PO DAILY Warfarin Sod (Jantoven), 5 MG PO DIRECTED Warfarin Sod (Coumadin), 7.5 MG PO UD Problem List Medical Problems: (1) Cellulitis (2) Chronic anticoagulation (3) Compression fracture of spine (4) CVA (cerebral vascular accident) (5) Dementia (6) Depression (7) Diabetic neuropathy (8) DM type 2 (diabetes mellitus, type 2) (9) Dyslipidemia (10) Factor V Leiden (11) GERD (gastroesophageal reflux disease) (12) History of DVT (deep vein thrombosis) (13) HTN (hypertension) (14) Hyperlipidemia (15) Osteoarthritis Surgical Problems: (1) History of left above knee amputation (2) S/P peripheral artery angioplasty Surgical / Medical History Hx Cardiac Surgery: No Hx Abdominal Surgery: No Hx Cancer Surgery: No Hx Thoracic Surgery: No Hx Orthopedic: Yes (Left BKA 2016, Right great toe amputation 2017) Hx Urinary Tract Surgery: No Past Medical/Surgical History: Diabetes, Heart Disease, Hypertension Family History Diabetes mellitus SISTER FH: CAD (coronary artery disease) BROTHER Stroke FATHER MOTHER Social History Smoking Status: Never Smoker Hx Tobacco Use In Past Year?: No Hx Alcohol Use - Type & Amnt: No Hx Substance Use -Type & Amnt: No Review of Systems Constitutional: No chills, No fever, No malaise Skin: + change in color Eyes: No visual changes ENMT: No sore throat Respiratory: No cough, No DECKER, No hemoptysis, No short of breath Cardiovascular: No chest pain, No syncope, No edema, No intermittent claudication Gastrointestinal: No abdominal pain, No nausea, No vomiting Neurologic: No dizziness, No numbness, No tingling Physical Exam Constitutional: General Apperance: well-nourished, well-developed Level of Distress: chronically ill (mildly) Psychiatric: Mental Status: active & alert, normal mood, normal affect Orientation: oriented except where noted, to time, to place, to person Memory: recent memory normal, remote memory normal Head: normocephalic, atraumatic Eyes: EOM: EOMI ENMT: normal ENT inspection, hearing grossly normal Neck: supple, trachea midline Lungs: Respiratory effort: no dyspnea Auscultation: breath sounds normal, no wheezing, no rales/crackles Cardiovascular: Apical Impulse: not displaced Heart Auscultation: no rubs, no gallops Peripheral Pulses: Pulses: full and equal, in all extremities except if noted Bruits: none appreciated Carotid Pulse: normal on the left, normal on the right Brachial Pulses: normal on the left, normal on the right Radial Pulse: normal on the left, normal on the right Femoral Pulse: normal on the left, normal on the right Posterior Tibialis Pulse: pertinent finding (nonpalpable RLE, LLE BKA) Dorsalis Pedis Pulse: decreased on the right (RLE +1,), pertinent finding ( LLE BKA) Abdomen: Bowel Sounds: normal Inspection & Palpation: soft, non-distended, no tenderness, guarding & rebound Musculoskeletal: normal strength (5/5 throughout), normal tone Extremities: Upper Right: no cyanosis, no edema, no varicosities Upper Left: no cyanosis, no edema, no varicosities Lower Right: pertinent finding (distal portion of L great toe with dry gangrene noted, no odor or erythema. Skin peeling in layers to MTP. Lateral foot with nickel sized area of black eschar, nontender, + local erythema, dry. Remainning 4 toes and foot warm and pink, with brisk cap refill. ) Lower Left: no cyanosis, no edema, no varicosities, pertinent finding (LLE BKA) Assessment and Plan ASSESSMENT and PLAN: PAD RLE wounds Pt discussed with Dr Ordonez, who also reviewed pt's US and chart. US demonstrates adequate blood flow to RLE. Does not recommend any vascular surgical intervention prior to orthopedic procedure. DP pulse palpable in RLE and foot appears healthy other than the 2 open areas. Pt aware. Could consider RLE angiography in future if nonhealing occurs, although no lesions amenable to intervention were identified on US. Please call if needed.
--- NOTE | 2017-02-14 11:21 | Orthopedic Progress Note ---
Orthopedic Progress Note Date of Service Feb 14, 2017. Subjective Reports: feeling well Additional Notes: No change in symptoms of the right foot. Patient is asking if surgery would be an option for today. Objective N/V intact, A&O x3 Right foot: The great toe at the distal aspect where the partial amputation site is has a relatively large eschar. Centrally, there is exposed bone, which is probably the distal aspect of the proximal phalanx. No drainage noted. No erythema. The lateral aspect of the 5th metatarsal has an eschar measuring 3 cm x 1.5 cm. Mild erythema around the wound. No drainage at this site. No streaking. The 5th toe appears to be normal. The 2nd, 3rd, and 4th toes are normal appearing with mild hammering. No open areas. Cap refill is present but slow. No erythema noted. Besides the 5th metatarsal ulcerated/eschar area, the MTP joints appear normal over the entire foot. Date Time Temp Pulse Resp B/P (MAP) Pulse Ox O2 Delivery O2 Flow Rate FiO2 02/14/17 09:45 Room Air 02/14/17 07:17 36.5 56 20 146/82 (103) 94 02/14/17 00:00 Room Air 02/13/17 23:40 36.8 63 20 145/82 (103) 93 Room Air 02/13/17 20:00 Room Air 02/13/17 15:01 36.6 63 20 132/79 (96) 95 Room Air 02/13/17 11:46 97 Room Air 02/13/17 11:38 Room Air Assessment & Plan Assessment: Right foot necrotic great toe Exposed bone of the great toe right foot s/p great toe partial amp ~2 weeks ago. Right foot ulcerated/eschar at the lateral 5th metatarsal head PVD Plan: Patient will need to have a right foot great toe amputation and I & D/ debridement of the lateral 5th metatarsal head ulceration. The patient's INR is currently 2.3. Will discuss surgery with medicine to see if the patient could be optimized for tomorrow AM. Will have patient NPO after midnight tonight for if surgery is performed. The patient feels that he had an MRI ~1 week ago at [facility] so we will obtain those results. If the lesser toes seem to be more involved than his exam suggests, the patient may require a transmetatarsal amputation. Discharge Planning Discharge Planning: uncertain
[2017-02-14] MEDS ORDERED: PHYTONADIONE 5 MG TAB PO STA (13:35)
[2017-02-14 15:01] VITALS: BP 141/75; PULSE 71; TEMP 36.7; O2SAT 95
--- NOTE | 2017-02-14 16:37 | Progress Note ---
Internal Med Progress Note Date of Service: Feb 14, 2017. Provider Documentation: SUBJECTIVE: resting comfortably no pain no sob ok for surgery no chest pain or sob OBJECTIVE: Vital Signs-as noted below Exam: General-alert and oriented. Not in distress ENT-normal hearing Neck-no neck masses Lungs-cta b/l no wheezing no crackles present Heart-s1 and s2 heard regular rhythm, no murmurs Abdomen-soft bowel sounds present non tender no distension Extremities s/p Left AKA. Right big toe amputation site blackened and necrotic Neuro-alert and oriented moves extremities Lab data as noted below. ASSESSMENT & PLAN: RIGHT FOOT NECROSIS, CELLULITIS In setting of PAD, DM 2 (controlled in past, repeat A1c in AM) S/p right 1st toe partial amputation by podiatry Dr. Cornelius in December 2016, recently hospitalized at [facility] for IV abx, failed outpatient tx with Levaquin started on iv vanco and Zosyn arterial US unremarkable vascular surgery no plan for any renovascular intervention Ortho planning for surgery tomorrow-right foot great toe amputation and I & D/ debridement of the lateral 5th metatarsal head ulceration. If ekg and cxr unremarkable patient should be at acceptable risk to proceed with surgery. HEART MURMUR Recently discovered per family, no recent echo done echo moderate calcified Ef 60-65% HYPERTENSION BP is stable on chlorthalidone and lisinopril DM TYPE 2 A1c was 6.3 in 10/2016 Holding metformin Continuing home Lantus Novolog sliding scale will monitor HISTORY OF CVA on aspirin, statin DEMENTIA on donepezil HX DVT, FACTOR V LEIDEN, HX EMBOLIC STROKE PER RECORDS DVT PROPHYLAXIS On Coumadin, INR 2.3- holding Coumadin for any procedures vitamin k given in anticipation of surgery tomorrow will bridge with iv heparin when able to CODE STATUS [facility] per h and p DISPOSITION to be determined Lives with Chanel Justice (wishes to be updated by phone at [phone]) Follows with Dr. Ramires for primary care Vital Signs: Date Time Temp Pulse Resp B/P (MAP) Pulse Ox O2 Delivery O2 Flow Rate FiO2 02/14/17 15:01 36.7 71 20 141/75 (97) 95 02/14/17 09:45 Room Air 02/14/17 07:17 36.5 56 20 146/82 (103) 94 02/14/17 00:00 Room Air 02/13/17 23:40 36.8 63 20 145/82 (103) 93 Room Air 02/13/17 20:00 Room Air Lab Results: Results Past 24 Hours Test 02/13/17 19:32 02/14/17 06:03 02/14/17 07:28 02/14/17 11:20 Range/Units Bedside Glucose 153 129 206 70-99 mg/dl Creatinine 1.00 0.60-1.40 mg/dl Est Creatinine Clear Calc Drug Dose 66.9 ml/min Estimated GFR () 84.4 Estimated GFR (Non- 72.8 Microbiology Results 02/13/17 Gram Stain - Final, Resulted 02/13/17 Wound Culture - Preliminary, Resulted NO GROWTH TO DATE.
[2017-02-14] MEDS ORDERED: VANCOMYCIN TROUGH SCH (17:30)
--- NOTE | 2017-02-14 19:32 | DIAGNOSTIC IMAGING REPORT ---
CHEST ONE VIEW PORTABLE CLINICAL HISTORY: congestion COMPARISON STUDY: No previous studies for comparison. FINDINGS: The heart is at the upper limits of normal in size. There is a suboptimal inspiration with mild bronchovascular crowding at the lung bases. There is no lobar consolidation. There is no overt failure. There are no significant pleural effusions.[ IMPRESSION: Suboptimal inspiration. No evidence of focal pulmonary consolidation. No evidence of overt failure. Electronically signed by: Osman De La Garza M.D. 02/14/2017 7:31 PM Dictated Date/Time: 02/14/2017 7:30 PM
--- NOTE | 2017-02-14 20:23 | Pharmacy Progress Note ---
Pharmacy Antibiotic Prog Note Date of Service Feb 14, 2017. Subjective The patient is currently receiving vancomycin 1250 mg IV every 16 hours, and Zosyn 3.375 Gm extended infusion q8h. The patient is currently on day # 3 of vancomycin and Zosyn IV therapy. Objective Height (Feet): 5 Height (Inches): 11.00 Weight (Kilograms): 83.000 Levels: Item Value Date Time Vancomycin Level Trough 14.4 mcg/ml 02/14/17 1717 Previous dose hung 02/14 @0301. Lab Results (24hrs): Test 02/14/17 06:03 02/14/17 11:20 02/14/17 16:32 02/14/17 17:17 Creatinine 1.00 mg/dl (0.60-1.40) Est Creatinine Clear Calc Drug Dose 66.9 ml/min Estimated GFR () 84.4 Estimated GFR (Non- 72.8 Bedside Glucose 206 mg/dl (70-99) 132 mg/dl (70-99) Vancomycin Level Trough 14.4 mcg/ml (SEE COMMENT) Micro Results: 02/12 blood x1 NGTD 02/13 blood x1 NGTD 02/13 drainage deep toe NGTD Recent Pertinent Medications Item Value Date Time Vancomycin HCl 275 ml @ 125 mls/hr 02/13/17 1000 1250 mg/Sodium Q16H/IV 02/14/17 1835 Chloride Piperacillin Sod/ 115 ml @ 28.75 mls/hr 02/13/17 0200 Tazobactam Sod Q8H/IV 02/14/17 1836 3.375 gm/Dextrose Piperacillin Sod/ 115 ml @ 230 mls/hr 02/12/17 2030 Tazobactam Sod NOW ONCE/IV 02/12/17 2311 3.375 gm/Dextrose Vancomycin HCl 532 ml @ 200 mls/hr 02/12/17 1748 1600 mg/Sodium ONE STAT/IV 02/12/17 1813 Chloride Assessment & Plan This drug level is: Therapeutic. Patient may go to OR tomorrow for I&D, possible amputation. Continue vancomycin 1250 mg IV every 16 hours. Goal trough level estimate: between 13-18 mcg/mL. Repeat vancomycin level will be ordered in 2-3 days if still on vancomycin and patient remains stable. Continue Zosyn 3.375 Gm IV (infused over 4 hr) every 8 hr. for CrCl greater than 20 ml/min. Pharmacy will continue to follow and will adjust dose/frequency as necessary. Thank you
[2017-02-14] MEDS: INSULIN GLARGINE SOLOSTAR 100 UNITS/ML 3 ML PEN SC SCH (21:38)
[2017-02-14 23:52] VITALS: BP 151/87; PULSE 65; TEMP 36.7; O2SAT 93
[2017-02-15] MEDS: PIPERACILL/TAZOBAC IV 3.375 GM in DEXTROSE 5% 100ML IV SCH ×3 (02:17→18:25)
[2017-02-15] MEDS: INSULIN ASPART 100 UNITS/ML 3 ML PEN SC SCH ×4 (06:30→20:19)
[2017-02-15 07:39] VITALS: BP 152/86; PULSE 71; TEMP 36.8; O2SAT 96
[2017-02-15] MEDS: ASPIRIN 81 MG ECTAB PO SCH (08:16)
[2017-02-15] MEDS: LISINOPRIL 20 MG TAB PO SCH (08:17)
[2017-02-15] MEDS: CHLORTHALIDONE 25 MG TAB PO SCH (08:19)
[2017-02-15] MEDS: PANTOprazole SOD 40 MG TAB PO SCH ×2 (08:20→20:16)
[2017-02-15] MEDS: SERTRALINE HCL 50 MG TAB PO SCH (08:20)
[2017-02-15] MEDS: POTASSIUM CHLORIDE 10 MEQ TABCR PO SCH (08:21)
[2017-02-15] MEDS ORDERED: BACITRACIN OINT 15 GM TUBE ONE (08:29)
[2017-02-15] MEDS ORDERED: LIDOCAINE HCL 1% 20 ML VIAL ONE (08:30)
[2017-02-15] MEDS ORDERED: BUPIVACAINE 0.5 % 5 MG/1 ML MPF 30ML VIAL ONE (08:30)
[2017-02-15 08:57] LABS: INR 1.2 (0.9-1.1); PROTHROMBIN TIME (PATIENT) 12.8 SECONDS (9.0-12.0)
[2017-02-15] MEDS: VANCOMYCIN INJ 1,250 MG in SODIUM CHLORIDE 0.9% 250ML 250 ML IV SCH (10:13)
[2017-02-15] MEDS ORDERED: LIDOCAINE HCL 2% 2 ML VIAL (20MG/ML) ONE (11:32)
[2017-02-15] MEDS ORDERED: MIDAZOLAM HCL 1 MG/ML 2ML VIAL ONE (11:32)
[2017-02-15] MEDS ORDERED: ONDANSETRON INJ 2 MG/ML 2 ML VIAL ONE (11:32)
[2017-02-15] MEDS ORDERED: FENTANYL CITRATE INJ 50 MCG/1 ML 2 ML VIAL ONE (11:32)
[2017-02-15] MEDS ORDERED: PROPOFOL IV EMULSION 10 MG/ML 20 ML VIAL IV ONE (11:32)
[2017-02-15] MEDS ORDERED: DEXAMETHASONE SOD INJ 4 MG/ML VIAL ONE (11:32)
--- NOTE | 2017-02-15 11:37 | History & Physical Bridge Note ---
H&P Re-Evaluation Bridge Note: I have examined the patient, reviewed the History & Physical and in the interval since the performance of the History & Physical I have noted the following changes of clinical significance: No changes noted
[2017-02-15] MEDS ORDERED: EpHEDrine SULFATE 50MG/5ML SYR ONE (12:29)
[2017-02-15] MEDS ORDERED: HYDROmorphone INJ 2 MG/ML SYR/VIAL ONE (12:51)
[2017-02-15] MEDS ORDERED: SODIUM CHLORIDE 0.9% INJ 10 ML VIAL ONE (12:53)
[2017-02-15] MEDS ORDERED: EpHEDrine SULFATE INJ 50 MG/ML AMP IV PRN (13:30)
[2017-02-15] MEDS ORDERED: HYDROmorphone INJ 1 MG/ML SYR IV PRN (13:30)
[2017-02-15] MEDS ORDERED: FENTANYL CITRATE INJ 50 MCG/1 ML 2 ML VIAL IV PRN (13:30)
[2017-02-15] MEDS ORDERED: ATROPINE SULFATE 0.1 MG/ML 5ML SYR IV PRN (13:30)
[2017-02-15] MEDS ORDERED: ONDANSETRON INJ 2 MG/ML 2 ML VIAL IV PRN (13:30)
--- NOTE | 2017-02-15 13:46 | [facility] Post Operative Brief Note ---
Immediate Operative Summary Operative Date Feb 15, 2017. Pre-Operative Diagnosis Right foot necrotic great toe, Exposed bone of the great toe right foot; Right foot ulceration/eschar at the lateral 5th metatarsal head Post-Operative Diagnosis Right foot necrotic gangrene great toe, Exposed bone of the great toe right foot; Right foot ulceration/eschar at the lateral 5th metatarsal head Procedure(s) Performed Right Foot, Great Toe Amputation; Debridement Necrotic Eschar 5th Metatarsal Head; Debridement fifth metarsophalangeal joint capsule Surgeon Dr. Arnaldo Coronado Php Architect Surgeon(s) None Estimated Blood Loss 4 mL Findings See dict Specimens Permanent specimens A: Proximal phalanx, right great toe Drains None Anesthesia GLMA w/ ankle block Complication(s) None Disposition Recovery Room / PACU
--- NOTE | 2017-02-15 14:14 | Anesthesiology Progress Note ---
Anesthesia Post Op Note Date & Time Feb 15, 2017 at 14:14 Vital Signs Pain Intensity: 0 Vital Signs Past 12 Hours Date Time Temp Pulse Resp B/P (MAP) Pulse Ox O2 Delivery O2 Flow Rate FiO2 02/15/17 14:01 135/74 02/15/17 14:00 98 19 98 02/15/17 14:00 86 19 02/15/17 13:56 133/76 02/15/17 13:55 101 16 98 02/15/17 13:55 75 16 02/15/17 13:51 128/71 02/15/17 13:50 75 15 02/15/17 13:50 102 15 98 02/15/17 13:49 103 20 98 02/15/17 13:49 60 20 02/15/17 13:46 132/76 02/15/17 13:44 86 14 02/15/17 13:44 106 14 98 02/15/17 13:41 131/67 02/15/17 13:39 60 18 02/15/17 13:39 97 18 99 02/15/17 13:38 94 14 99 02/15/17 13:38 71 14 02/15/17 13:36 143/75 02/15/17 13:33 96 15 99 02/15/17 13:33 83 15 02/15/17 13:31 135/81 02/15/17 13:28 97 16 99 02/15/17 13:28 73 16 02/15/17 13:26 137/78 02/15/17 13:24 148/78 02/15/17 13:23 96 18 99 02/15/17 13:23 37.0 96 18 148/78 99 Oxymask 10 02/15/17 13:23 96 18 02/15/17 08:00 Room Air 02/15/17 07:39 36.8 71 20 152/86 (108) 96 Notes Mental Status: alert / awake / arousable, participated in evaluation Pt Amnestic to Procedure: Yes Nausea / Vomiting: adequately controlled Pain: adequately controlled Airway Patency, RR, SpO2: stable & adequate BP & HR: stable & adequate Hydration State: stable & adequate Anesthetic Complications: no major complications apparent
--- NOTE | 2017-02-15 14:16 | OPERATIVE REPORT ---
DATE OF OPERATION: 02/15/2017 PREOPERATIVE DIAGNOSES: 1. Right great toe necrosis. 2. Right great toe gangrene. 3. Necrotic eschar of the right fifth metatarsal head. 4. Ulceration lateral fifth metatarsal head. POSTOPERATIVE DIAGNOSIS: Same. PROCEDURES: 1. Right great toe amputation. 2. Debridement of necrotic eschar right fifth metatarsal head. 3. Debridement fifth metatarsophalangeal joint capsule. SURGEON: Dr. Coronado. TOY PAINTER: None. ANESTHESIA: General LMA with ankle block. SPECIMENS: Great toe right foot. DRAINS: None. COMPLICATIONS: None. BLOOD LOSS: 4 mL. PERTINENT HISTORY: This is a 76-year-old gentleman with diabetes who had had a prior partial amputation of his right great toe approximately 2 weeks ago by a cullet crusher and washer by the name of Dr. Cornelius. The patient had been on IV antibiotics and had worsening necrosis of the remaining great toe with blackening of the tip with loss of sensation. The patient then developed cellulitis in the foot with proximal streaking and extension. He has been admitted to [facility], placed on IV antibiotics and orthopedics was consulted. The patient's great toe and fifth metatarsal head were noted to require surgical intervention. He did have a amputation of the right great toe due to gangrene of the toe and complete wound necrosis as well as debridement of the fifth metatarsal head, eschar and ulceration. All potential risks, benefits, complications, alternatives, rehab, potential for incomplete relief of symptoms, need for further surgery, DVT, PE, , persistent pain, swelling, scarring, weakness, neurovascular injury, wound complications, possible further amputation was discussed with the patient. The patient decided to proceed with the procedure as indicated. PROCEDURE: The patient was taken to the operative suite, placed supine on the operating room table. I reviewed the consent and identification of proper operative site. The patient was anesthetized and LMA was placed. Next, the right lower extremity was then sterilely prepped with Betadine and then an ankle block was performed with 30 mL of 0.5% Marcaine plain and approximately 8 mL of 1% lidocaine. Next, the right lower extremity was then sterilely prepped and draped in usual fashion. The right lower extremity was then elevated and partially exsanguinated from the mid foot extending proximally using Esmarch bandage and Esmarch tourniquet was applied over sterile surgical towel at the level of the ankle. Next, a 15 blade scalpel was then used to sharply excise the necrotic tissue at approximately the mid portion of the proximal phalanx of the great toe. The obviously necrotic blackened and gangrenous tissue was then sharply excised and passed off. Next, the exposed proximal phalanx of the great toe was then observed to have necrosis of the medial condyle of the proximal phalanx. This eburnated necrotic bone was extended to the proximal portion of the condyle. Next, a bledsoe elevator was then used to sharply elevate all soft tissue surrounding the great toe in an effort to preserve the healthy and viable tissue for later fashioning of the closing flap. The bledsoe elevator was used to elevate the soft tissue circumferentially around the proximal phalanx and then a relief cut was made with a 15 blade scalpel along the medial aspect of the proximal phalanx to the level of the first metatarsophalangeal joint. Next, the capsule was then sharply incised with 15 blade scalpel circumferentially around the proximal phalanx essentially shelling the proximal phalanx from the surrounding soft tissue sleeve. This allowed preservation of the fragile arterials and venules. Next, this wound was copiously irrigated with sterile normal saline until clear. There was no evidence of further wound necrosis at the base of the flap, no evidence of wound necrosis or osteomyelitis in the first metatarsal head. No purulence was encountered. Next, the flexor tendon was then visualized and the flexor hallucis longus was then placed under traction and then transected with a 15 blade scalpel and allowed to retract deep within the mid foot as the distal portion of it had become completely desiccated and nonviable. Next, the 15 blade was used to fashion soft tissue flap with a longer plantar flap. This was done closed loosely over the first metatarsal with interrupted 3-0 nylon sutures with a combination of vertical mattress and simple sutures. A tension free closure was achieved. Next, attention was then directed toward the lateral aspect of the foot over the fifth metatarsal head. A 15 blade scalpel was then used to debride the necrotic eschar which had formed. This nonviable tissue was then passed off and then the tissue was then observed and noted to be viable. This was irrigated with sterile normal saline. The joint capsule was then encountered, noted to have some superficial features of necrosis which was then debrided sharply with a 15 blade scalpel back to viable capsular tissue. The surrounding epidermis and subcutaneous fat was noted to be viable and this was then irrigated until clear with sterile normal saline. Next, a sterile gently compressive forefoot dressing was applied consisting of Vaseline impregnated gauze, sterile 4 x 4's, sterile Webril, ABD pad x1 and a 4 inch Ze wrap. The tourniquet was released, the patient was awakened and taken to recovery in stable condition. I attest to the content of the Intraoperative Record and any orders documented therein. Any exceptions are noted below. KATELIND
[2017-02-15 14:25] VITALS: BP 132/83; PULSE 103; TEMP 36.5; O2SAT 98
[2017-02-15 14:46] VITALS: BP 137/80; PULSE 98; TEMP 36.4; O2SAT 95
[2017-02-15 15:18] VITALS: BP 128/80; PULSE 107; TEMP 35.5; O2SAT 97
[2017-02-15 16:16] VITALS: BP 129/86; PULSE 106; TEMP 36.2; O2SAT 94
--- NOTE | 2017-02-15 19:15 | Progress Note ---
Internal Med Progress Note Date of Service: Feb 15, 2017. Provider Documentation: SUBJECTIVE: resting comfortably s/p surgery today denies any pain no sob or chest pain no nausea afebrile OBJECTIVE: Vital Signs-as noted below Exam: General-alert and oriented. Not in distress ENT-normal hearing Neck-no neck masses Lungs-cta b/l no wheezing no crackles present Heart-s1 and s2 heard regular rhythm, no murmurs Abdomen-soft bowel sounds present non tender no distension Extremities s/p Left AKA. s/p Right big toe amputation -in dressing Neuro-alert and oriented moves extremities Lab data as noted below. ASSESSMENT & PLAN: RIGHT FOOT NECROSIS, CELLULITIS In setting of PAD, DM 2 (controlled in past, repeat A1c in AM) S/p right 1st toe partial amputation by podiatry Dr. Cornelius in December 2016, recently hospitalized at [facility] for IV abx, failed outpatient tx with Levaquin started on iv vanco and Zosyn arterial US unremarkable vascular surgery no plan for any renovascular intervention s/p right foot great toe amputation and I & D/debridement of the lateral 5th metatarsal head ulceration. tolerated procedure fine will monitor. HEART MURMUR Recently discovered per family, no recent echo done echo moderate calcified Ef 60-65% HYPERTENSION BP is stable on chlorthalidone and lisinopril DM TYPE 2 A1c was 6.3 in 10/2016 Holding metformin Continuing home Lantus Novolog sliding scale will monitor HISTORY OF CVA on aspirin, statin DEMENTIA on donepezil HX DVT, FACTOR V LEIDEN, HX EMBOLIC STROKE PER RECORDS DVT PROPHYLAXIS On Coumadin, INR 2.3- holding Coumadin for any procedures vitamin k given in anticipation of surgery inr 1.2 today will bridge with iv heparin when able to CODE STATUS [facility] per h and p DISPOSITION to be determined pt/ot Lives with Chanel Justice (wishes to be updated by phone at [phone]) Follows with Dr. Ramires for primary care Vital Signs: Date Time Temp Pulse Resp B/P (MAP) Pulse Ox O2 Delivery O2 Flow Rate FiO2 02/15/17 16:16 36.2 106 129/86 (100) 94 Room Air 02/15/17 16:00 Room Air 02/15/17 15:18 35.5 107 128/80 (96) 97 Nasal Cannula 2.0 02/15/17 14:46 36.4 98 137/80 (99) 95 16 14:25 36.5 103 18 132/83 (99) 98 3.0 02/15/17 14:22 71 17 14:17 65 02/15/ 14:12 100 18 97 16 14:12 69 18 1617 14:11 125/76 17 14:07 97 20 97 1617 14:07 67 20 17 14:06 129/74 1617 14:02 99 26 98 1617 14:02 83 26 02/15/17 14:01 135/74 02/15/17 14:00 98 19 98 16 14:00 86 19 02/15/17 13:56 133/76 02/15/17 13:55 101 16 98 16 13:55 75 16 02/15/17 13:51 128/71 02/15/17 13:50 75 15 02/15/17 13:50 102 15 98 1617 13:49 103 20 98 02/15/17 13:49 60 20 16 13:46 132/76 02/15/17 13:44 86 14 02/15/17 13:44 106 14 98 16 13:41 131/67 1617 13:39 60 18 02/15/17 13:39 97 18 99 16 13:38 94 14 99 02/15/17 13:38 71 14 02/15/17 13:36 143/75 17 13:33 96 15 99 1617 13:33 83 15 16 13:31 135/81 16/17 13:28 97 16 99 1617 13:28 73 16 1617 13:26 137/78 1617 13:24 148/78 16/17 13:23 96 18 99 1617 13:23 37.0 96 18 148/78 99 Oxymask 10 02/15/17 13:23 96 18 02/15/17 08:00 Room Air 02/15/17 07:39 36.8 71 20 152/86 (108) 96 9/16/17 00:00 Room Air 02/14/17 23:52 36.7 65 20 151/87 (108) 93 Room Air Lab Results: Results Past 24 Hours Test 02/14/17 20:18 02/15/17 05:49 02/15/17 06:58 02/15/17 08:22 Range/Units Bedside Glucose 196 131 70-99 mg/dl Creatinine 1.00 0.60-1.40 mg/dl Est Creatinine Clear Calc Drug Dose 66.9 ml/min Estimated GFR () 84.4 Estimated GFR (Non- 72.8 Prothrombin Time 12.8 9.0-12.0 SECONDS Prothromb Time International Ratio 1.2 0.9-1.1 Test 02/15/17 11:55 02/15/17 13:49 02/15/17 14:24 02/15/17 16:29 Range/Units Bedside Glucose 110 142 154 290 70-99 mg/dl
[2017-02-15 20:00] VITALS: O2SAT 94
[2017-02-15] MEDS ORDERED: ACETAMINOPHEN 325 MG TAB PO PRN (20:00)
[2017-02-15] MEDS: HYDROmorphone INJ 0.5 MG/0.5 ML SYR IV PRN ×2 (20:17→23:31)
[2017-02-15] MEDS: INSULIN GLARGINE SOLOSTAR 100 UNITS/ML 3 ML PEN SC SCH (20:18)
[2017-02-16] VITALS: O2SAT 94
[2017-02-16 00:02] VITALS: BP 121/77; PULSE 97; TEMP 36.8; O2SAT 93
[2017-02-16] MEDS: PIPERACILL/TAZOBAC IV 3.375 GM in DEXTROSE 5% 100ML IV SCH ×3 (02:44→18:51)
[2017-02-16] MEDS: HYDROmorphone INJ 0.5 MG/0.5 ML SYR IV PRN ×3 (02:44→14:01)
[2017-02-16] MEDS: VANCOMYCIN INJ 1,250 MG in SODIUM CHLORIDE 0.9% 250ML 250 ML IV SCH ×2 (02:45→18:51)
[2017-02-16 07:19] VITALS: BP 127/67; PULSE 60; TEMP 36.4; O2SAT 100
[2017-02-16 07:20] LABS: PROTHROMBIN TIME (PATIENT) 11.1 SECONDS (9.0-12.0)
[2017-02-16 08:00] VITALS: O2SAT 94
[2017-02-16] MEDS: PANTOprazole SOD 40 MG TAB PO SCH ×2 (08:32→21:25)
[2017-02-16] MEDS: POTASSIUM CHLORIDE 10 MEQ TABCR PO SCH (08:32)
[2017-02-16] MEDS: LISINOPRIL 20 MG TAB PO SCH (08:32)
[2017-02-16] MEDS: ASPIRIN 81 MG ECTAB PO SCH (08:32)
[2017-02-16] MEDS: CHLORTHALIDONE 25 MG TAB PO SCH (08:32)
[2017-02-16] MEDS: SERTRALINE HCL 50 MG TAB PO SCH (08:33)
[2017-02-16] MEDS: INSULIN ASPART 100 UNITS/ML 3 ML PEN SC SCH ×4 (08:54→21:00)
--- NOTE | 2017-02-16 10:27 | Orthopedic Progress Note ---
Orthopedic Progress Note Date of Service Feb 16, 2017. Subjective Post OP Day: 1 Reports: feeling well, Denies: complaints Objective calves soft nontender, dressing C/D/I, A&O x3 NAD, AOx3 RLE Motor intact grossly, compartments soft, dressing intact, CDI Date Time Temp Pulse Resp B/P (MAP) Pulse Ox O2 Delivery O2 Flow Rate FiO2 02/16/17 07:19 36.4 60 16 127/67 (87) 100 Room Air 02/16/17 00:02 36.8 97 20 121/77 (92) 93 Room Air 02/16/17 00:00 94 Room Air 02/15/17 20:00 94 Room Air 02/15/17 16:16 36.2 106 129/86 (100) 94 Room Air 02/15/17 16:00 Room Air 02/15/17 15:18 35.5 107 128/80 (96) 97 Nasal Cannula 2.0 02/15/17 14:46 36.4 98 137/80 (99) 95 02/15/17 14:25 36.5 103 18 132/83 (99) 98 3.0 02/15/17 14:22 71 02/15/17 14:17 65 02/15/17 14:12 100 18 97 02/15/17 14:12 69 18 02/15/17 14:11 125/76 02/15/17 14:07 97 20 97 02/15/17 14:07 67 20 02/15/17 14:06 129/74 02/15/17 14:02 99 26 98 02/15/17 14:02 83 26 02/15/17 14:01 135/74 02/15/17 14:00 98 19 98 02/15/17 14:00 86 19 02/15/17 13:56 133/76 02/15/17 13:55 101 16 98 02/15/17 13:55 75 16 02/15/17 13:51 128/71 02/15/17 13:50 75 15 02/15/17 13:50 102 15 98 02/15/17 13:49 103 20 98 02/15/17 13:49 60 20 02/15/17 13:46 132/76 02/15/17 13:44 86 14 02/15/17 13:44 106 14 98 02/15/17 13:41 131/67 02/15/17 13:39 60 18 02/15/17 13:39 97 18 99 02/15/17 13:38 94 14 99 02/15/17 13:38 71 14 02/15/17 13:36 143/75 02/15/17 13:33 96 15 99 02/15/17 13:33 83 15 02/15/17 13:31 135/81 02/15/17 13:28 97 16 99 02/15/17 13:28 73 16 02/15/17 13:26 137/78 02/15/17 13:24 148/78 02/15/17 13:23 96 18 99 02/15/17 13:23 37.0 96 18 148/78 99 Oxymask 10 02/15/17 13:23 96 18 Laboratory Results 24 Hours: Test 02/16/17 06:41 Prothromb Time International Ratio 1.0 Prothrombin Time 11.1 SECONDS Assessment & Plan Assessment: Right foot necrotic great toe Exposed bone of the great toe right foot s/p great toe partial amp ~2 weeks ago. Right foot ulcerated/eschar at the lateral 5th metatarsal head PVD s/p Right Foot, Great Toe Amputation; Debridement Necrotic Eschar 5th Metatarsal Head; Debridement fifth metarsophalangeal joint capsule Plan: IV abx - Vanc/Zosyn Follow cultures Dressing changed Heel weight bearing only Vascular following Wound care following Discharge Planning Discharge Planning: uncertain
[2017-02-16] MEDS: TRAMADOL HCL 50 MG TAB PO PRN ×2 (10:40→18:51)
[2017-02-16 12:25] LABS: CREATININE 1.1 mg/dl (0.60-1.40)
--- NOTE | 2017-02-16 12:34 | Consultant Recommendations ---
Synthetic Filament Extruder Recommendations Date of Service Feb 16, 2017. Synthetic Filament Extruder Recommendations ACTIVITY RECOMMENDATIONS: Limitations: No weight bearing to affected limb at all times. SPECIAL CARE INSTRUCTIONS: * Some drainage onto the dressing is normal and is no cause for alarm. * Some swelling is natural especially after walking. * When resting, keep your foot elevated above the level of your heart. * Call [facility] if you notice: -Increased drainage -Fever over 101 degrees F -Severe constant pain BANDAGE: * Leave bandage in place unless otherwise directed. * Home nursing may change the dressing daily or every other day. Adaptic must be cut to the size of the incision or ulceration then covered with gauze. * Keep bandage/cast dry at all times. FOLLOW UP VISIT WITH DR. CRZU If appointment is not already scheduled: [facility] after you get home today to schedule a follow-up appointment for 1 week (9..17 if patient is discharged) with Dr. Cruz at .
[2017-02-16] MEDS ORDERED: WARFARIN SOD 7.5 MG TAB PO SCH (16:00)
[2017-02-16 16:32] VITALS: BP 146/81; PULSE 67; TEMP 36.5; O2SAT 96
--- NOTE | 2017-02-16 17:22 | Progress Note ---
Internal Med Progress Note Date of Service: Feb 16, 2017. Provider Documentation: SUBJECTIVE: resting comfortably s/p surgery yesterday denies any pain ays doing fine no sob or cough asks when he can go home OBJECTIVE: Vital Signs-as noted below Exam: General-alert and oriented. Not in distress ENT-normal hearing Neck-no neck masses Lungs-cta b/l no wheezing no crackles present Heart-s1 and s2 heard regular rhythm, no murmurs Abdomen-soft bowel sounds present non tender no distension Extremities s/p Left AKA. s/p Right big toe amputation -in dressing Neuro-alert and oriented moves extremities Lab data as noted below. ASSESSMENT & PLAN: RIGHT FOOT NECROSIS, CELLULITIS In setting of PAD, DM 2 (controlled in past, repeat A1c in AM) S/p right 1st toe partial amputation by podiatry Dr. Cornelius in December 2016, recently hospitalized at [facility] for IV abx, failed outpatient tx with Levaquin started on iv vanco and Zosyn arterial US unremarkable vascular surgery no plan for any renovascular intervention s/p right foot great toe amputation and I & D/debridement of the lateral 5th metatarsal head ulceration. tolerated procedure fine await final cx consult ID for abx for discharge will monitor. HEART MURMUR Recently discovered per family, no recent echo done echo moderate calcified Ef 60-65% HYPERTENSION BP is stable on chlorthalidone and lisinopril DM TYPE 2 A1c was 6.3 in 10/2016 Holding metformin Continuing home Lantus Novolog sliding scale will monitor HISTORY OF CVA on aspirin, statin DEMENTIA on donepezil HX DVT, FACTOR V LEIDEN, HX EMBOLIC STROKE PER RECORDS DVT PROPHYLAXIS On Coumadin, INR 2.3- holding Coumadin for any procedures vitamin k given in anticipation of surgery inr 1.2 today restarted Coumadin f/u inr CODE STATUS Full no mech ventilation per h and p DISPOSITION to be determined pt/ot Lives with Chanel Justice (wishes to be updated by phone at [phone]) Follows with Dr. Ramires for primary care Vital Signs: Date Time Temp Pulse Resp B/P (MAP) Pulse Ox O2 Delivery O2 Flow Rate FiO2 02/16/17 16:32 36.5 67 18 146/81 (102) 96 Room Air 02/16/17 08:00 94 Room Air 02/16/17 07:19 36.4 60 16 127/67 (87) 100 Room Air 02/16/17 00:02 36.8 97 20 121/77 (92) 93 Room Air 02/16/17 00:00 94 Room Air 02/15/17 20:00 94 Room Air Lab Results: Results Past 24 Hours Test 02/15/17 20:15 02/16/17 06:41 02/16/17 07:19 02/16/17 11:04 Range/Units Bedside Glucose 308 216 245 70-99 mg/dl Prothrombin Time 11.1 9.0-12.0 SECONDS Prothromb Time International Ratio 1.0 0.9-1.1 Test 02/16/17 11:48 Range/Units Creatinine 1.10 0.60-1.40 mg/dl Est Creatinine Clear Calc Drug Dose 60.8 ml/min Estimated GFR () 75.2 Estimated GFR (Non- 64.9
[2017-02-16] MEDS: INSULIN GLARGINE SOLOSTAR 100 UNITS/ML 3 ML PEN SC SCH (21:29)
[2017-02-16 23:32] VITALS: BP 126/76; PULSE 62; TEMP 36.8; O2SAT 94
[2017-02-17] VITALS: O2SAT 94
[2017-02-17] MEDS: PIPERACILL/TAZOBAC IV 3.375 GM in DEXTROSE 5% 100ML IV SCH ×3 (01:28→18:04)
[2017-02-17] MEDS: TRAMADOL HCL 50 MG TAB PO PRN ×3 (01:28→15:42)
[2017-02-17] MEDS: KETOROLAC TROMETHAMINE 15 MG/ML VIAL IV. PRN ×3 (05:47→22:14)
[2017-02-17 07:05] LABS: BASO % 0.2 %; BASO ABS # 0.02 K/uL (0-0.2); COMPLETE YES; HEMATOCRIT 35.6 % (42-52); IG% 0.1 %; LYMPH ABS # 0.98 K/uL (1.2-3.4); MEAN CELL VOLUME 91.8 fL (80-100); MEAN CORPUSCULAR HEMOGLOBIN 29.9 pg (25-34); MEAN CORPUSCULAR HGB CONC 32.6 g/dl (32-36); MEAN PLATELET VOLUME 10.8 fL (7.4-10.4); MONO % 9.2 %; NEUT % 75.5 %; PLATELET COUNT 298 K/uL (130-400); RED BLOOD COUNT 3.88 M/uL (4.7-6.1); WHITE BLOOD COUNT 8.92 K/uL (4.8-10.8)
[2017-02-17 07:14] LABS: PROTHROMBIN TIME (PATIENT) 11.1 SECONDS (9.0-12.0)
[2017-02-17 07:33] LABS: BUN/CREATININE RATIO 13.2 (10-20); CALCIUM 8.7 mg/dl (8.5-10.1); CREATININE 1.3 mg/dl (0.60-1.40); POTASSIUM 3.9 mmol/L (3.5-5.1)
[2017-02-17 07:47] VITALS: BP 154/91; PULSE 59; TEMP 36.7; O2SAT 94
[2017-02-17] MEDS: PANTOprazole SOD 40 MG TAB PO SCH ×2 (08:13→19:47)
[2017-02-17] MEDS: SERTRALINE HCL 50 MG TAB PO SCH (08:13)
[2017-02-17] MEDS: CHLORTHALIDONE 25 MG TAB PO SCH (08:13)
[2017-02-17] MEDS: LISINOPRIL 20 MG TAB PO SCH (08:13)
[2017-02-17] MEDS: ASPIRIN 81 MG ECTAB PO SCH (08:14)
[2017-02-17] MEDS: POTASSIUM CHLORIDE 10 MEQ TABCR PO SCH (08:14)
[2017-02-17] MEDS: INSULIN ASPART 100 UNITS/ML 3 ML PEN SC SCH ×4 (08:30→19:51)
--- NOTE | 2017-02-17 08:32 | Orthopedic Progress Note ---
Orthopedic Progress Note Date of Service Feb 17, 2017. Subjective Post OP Day: 2 Reports: feeling well, pain controlled w PO medications, Denies: complaints, chest pain, SOB, nausea / vomiting, light headedness, calf pain Objective calves soft nontender, dressing C/D/I, incision C/D/I, A&O x3 sutures in tact, mild erythema, no active drainage. Date Time Temp Pulse Resp B/P (MAP) Pulse Ox O2 Delivery O2 Flow Rate FiO2 02/17/17 07:47 36.7 59 18 154/91 (112) 94 Room Air 02/17/17 00:00 94 Room Air 02/16/17 23:32 36.8 62 20 126/76 (93) 94 Room Air 02/16/17 19:18 Room Air 02/16/17 16:32 36.5 67 18 146/81 (102) 96 Room Air Laboratory Results 24 Hours: Test 02/17/17 06:37 White Blood Count 8.92 K/uL Red Blood Count 3.88 M/uL Hemoglobin 11.6 g/dL Hematocrit 35.6 % Mean Corpuscular Volume 91.8 fL Mean Corpuscular Hemoglobin 29.9 pg Mean Corpuscular Hemoglobin Concent 32.6 g/dl Platelet Count 298 K/uL Mean Platelet Volume 10.8 fL Neutrophils (%) (Auto) 75.5 % Lymphocytes (%) (Auto) 11.0 % Monocytes (%) (Auto) 9.2 % Eosinophils (%) (Auto) 4.0 % Basophils (%) (Auto) 0.2 % Neutrophils # (Auto) 6.73 K/uL Lymphocytes # (Auto) 0.98 K/uL Monocytes # (Auto) 0.82 K/uL Eosinophils # (Auto) 0.36 K/uL Basophils # (Auto) 0.02 K/uL Prothromb Time International Ratio 1.0 Prothrombin Time 11.1 SECONDS Assessment & Plan Assessment: Right foot necrotic great toe Exposed bone of the great toe right foot s/p great toe partial amp ~2 weeks ago. Right foot ulcerated/eschar at the lateral 5th metatarsal head PVD POD #2 s/p Right Foot, Great Toe Amputation; Debridement Necrotic Eschar 5th Metatarsal Head; Debridement fifth metarsophalangeal joint capsule Plan: IV abx - Vanc/Zosyn Follow cultures Dressing changed today 02/17/17 Heel weight bearing only Vascular following Wound care following Will sign off orthopedically, please see consult recommendations report. Discharge Planning Discharge Planning: uncertain
--- NOTE | 2017-02-17 09:56 | Anesthesiology Progress Note ---
Anesthesia Post Op Note Date & Time Feb 17, 2017 at 09:55 Vital Signs Vital Signs Past 12 Hours Date Time Temp Pulse Resp B/P (MAP) Pulse Ox O2 Delivery O2 Flow Rate FiO2 02/17/17 07:47 36.7 59 18 154/91 (112) 94 Room Air 02/17/17 00:00 94 Room Air 02/16/17 23:32 36.8 62 20 126/76 (93) 94 Room Air Notes Mental Status: alert / awake / arousable, participated in evaluation Pt Amnestic to Procedure: Yes Nausea / Vomiting: adequately controlled Pain: adequately controlled Airway Patency, RR, SpO2: stable & adequate BP & HR: stable & adequate Hydration State: stable & adequate Anesthetic Complications: no major complications apparent
[2017-02-17] MEDS: VANCOMYCIN INJ 1,250 MG in SODIUM CHLORIDE 0.9% 250ML 250 ML IV SCH (10:18)
--- NOTE | 2017-02-17 10:59 | Progress Note ---
Progress Note Date of Service Feb 17, 2017. Progress Note ID Consult Dictated #[id number] A/P: 1. Gangrene right foot s/p amp -Unclear if superficial culture growing rare WOOL BRUSHER is colonization, no OR cultures obtained -Would suggest doxy 100mg po bid with food x 14 days at time of d/c -Will need continued surgical followup post d/c -thank you
--- NOTE | 2017-02-17 11:08 | INFECT. DISEASE CONSULTATION ---
DATE OF CONSULTATION: 02/17/2017 REQUESTING PHYSICIAN: Minh Ward MD HISTORY OF PRESENT ILLNESS: This is a 76-year-old gentleman who was admitted to the hospital on the from his PCP for right foot necrosis. He did have a partial right toe amputation done at the outpatient surgical center in December of this year. He had significant necrosis postoperatively with pain and swelling. He was placed on Levaquin and was hospitalized at [facility] in early January where he did receive a short course of antibiotics. He was discharged from the hospital on the Levaquin. The patient and the did not notice any improvement and the necrosis of his toe and also noticed an area over the fifth metatarsal which had necrotic tissue as well. He was sent to the ER for further evaluation. He was seen by orthopedic surgery here at the hospital and did undergo surgery on the . He did have a full right toe amputation and had debridement of the necrotic eschar on the fifth metatarsal head. No intraoperative cultures were obtained; however, superficial swab in the ER did show coag negative Staph. No sensitivities were done on this. He also had blood cultures on the which showed no growth to date. He is currently receiving IV antibiotics with vancomycin and Zosyn. He has been afebrile. His white cell count is normal. He denies any pain in the foot postoperatively. He has no complaints of fevers or chills. He denies any abdominal pain, nausea, vomiting or diarrhea. All remaining review of systems is reviewed and is unremarkable. Infectious disease was consulted for discharge antibiotics. PAST MEDICAL HISTORY: Significant for peripheral arterial disease with a history of a left above the knee amputation, history of CVA, factor V Leiden, on Coumadin, dementia, depression, diabetic neuropathy, dyslipidemia, GERD, DVT, hypertension and osteoarthritis. PAST SURGICAL HISTORY: Significant for left AKA and angioplasty in 2016. FAMILY HISTORY: Noncontributory. SOCIAL HISTORY: Negative for tobacco use, alcohol use or drug use. He is and lives with his . ALLERGIES: He has no known drug allergies. CURRENT MEDICATIONS: Include Coumadin, Tylenol, Ultram, Toradol, Dilaudid, Zofran, Desenex, vancomycin, Ecotrin, lisinopril, potassium, Zoloft, Zosyn, Lantus, and Protonix. PHYSICAL EXAMINATION: VITAL SIGNS: She is afebrile, pulse 59, respiratory rate 18, blood pressure 154/91, and oxygen saturation is 94-96% on room air. GENERAL: He is awake, alert and oriented. He is in no acute distress. HEENT: Mucous membranes are moist. Extraocular muscles are intact. HEART: Regular with systolic ejection murmur. LUNGS: Clear bilaterally. ABDOMEN: Soft, nontender, nondistended. EXTREMITIES: Left AKA stump is intact. Examination of the right foot reveals sutures over the right toe to be clean, dry and intact. There is no erythema. There is no foul odor. Dressing is otherwise clean, dry and intact. There is no erythema of the extremity. LABORATORY STUDIES: CBC today reveals a white blood cell count of 8.2, hemoglobin 11.6, platelets are 298. Chemistry panel reveals sodium of 138, potassium 3.9, chloride 101, bicarbonate 30, BUN 17, creatinine 1.3, glucose is 116. Again, blood cultures from the and are no growth to date. A superficial wound culture of the toe on the is growing rare coag negative Staph with no sensitivities. IMAGING DATA: Foot x-ray done in the Emergency Room shows no evidence for osteomyelitis. Lower extremity ultrasound shows no significant stenosis. Chest x-ray done on the is negative for infiltrate. ASSESSMENT AND PLAN: Necrotic toe likely due to vascular disease, no cultures were obtained and certainly the coag negative Staphylococcus from a superficial swab on the certainly be a skin bacteria; however, I feel that surgical intervention was needed and this has been completed. There has been no evidence of osteomyelitis on imaging. My recommendation would be to transition to a 2-week course of doxycycline and continued surgical followup. Thank you for this consultation.
--- NOTE | 2017-02-17 13:00 | Pharmacy Progress Note ---
Pharmacy Abx Dose Short Note Date of Service Feb 17, 2017. Assessment & Plan Assessment 76 year old male receiving IV Vancomycin/Zosyn for treatment of cellulitis at the site of right foot necrosis Day # 6/10 of antimicrobial therapy. Noted drug accumulation from trough 14.4 mg/dl on 02/14/17 up to 17.9 mg/dl today. Serum creatinine up to 1.3 mg/dL today. Noted ID consult with pending transition to oral doxycycline Item Value Date Time Vancomycin Level Trough 17.9 mcg/ml 02/17/17 0937 Creatinine 1.30 mg/dl 02/17/17 0637 Creatinine 1.10 mg/dl 02/16/17 1148 Vancomycin Level Trough 14.4 mcg/ml 02/14/17 1717 Item Value Date Time Gram Stain - Final Complete 02/13/17 1800 Drainage - Surface Toe Right 1 Coag Neg Staph Blood Culture - Preliminary Resulted 02/13/17 0221 Blood NO GROWTH TO DATE. Blood Culture - Preliminary Resulted 02/12/17 1700 Blood NO GROWTH TO DATE. Plan Vancomycin * Trough level of 17.9 mcg/mL is therapeutic * Continue dose of 1250 mg IV every 16 hours pending transition to oral doxycycline per ID * Goal trough level for cellulitis: 13 to 20 mcg/mL * Will repeat trough in ~48 hours if IV Vancomycin course is continued as an inpatient. Pharmacy will continue to follow and will adjust dose/frequency as necessary. Thank you.
--- NOTE | 2017-02-17 14:35 | Progress Note ---
Internal Med Progress Note Date of Service: Feb 17, 2017. Provider Documentation: SUBJECTIVE: resting comfortably s/p surgery 02/15/17 denies any pain doing fine afebrile ok to go home tomorrow OBJECTIVE: Vital Signs-as noted below Exam: General-alert and oriented. Not in distress ENT-normal hearing Neck-no neck masses Lungs-cta b/l no wheezing no crackles present Heart-s1 and s2 heard regular rhythm, no murmurs Abdomen-soft bowel sounds present non tender no distension Extremities s/p Left AKA. s/p Right big toe amputation -in dressing Neuro-alert and oriented moves extremities Lab data as noted below. ASSESSMENT & PLAN: RIGHT FOOT NECROSIS, CELLULITIS In setting of PAD, DM 2 (controlled in past, repeat A1c in AM) S/p right 1st toe partial amputation by podiatry Dr. Cornelius in December 2016, recently hospitalized at [facility] for IV abx, failed outpatient tx with Levaquin started on iv vanco and Zosyn arterial US unremarkable vascular surgery no plan for any renovascular intervention s/p right foot great toe amputation and I & D/debridement of the lateral 5th metatarsal head ulceration. tolerated procedure fine await final cx consult ID for abx for discharge- to d/c on po doxycyline stable HEART MURMUR Recently discovered per family, no recent echo done echo moderate calcified Ef 60-65% HYPERTENSION BP is stable on chlorthalidone and lisinopril DM TYPE 2 A1c was 6.3 in 10/2016 Holding metformin Continuing home Lantus NovoLog sliding scale will monitor HISTORY OF CVA on aspirin, statin DEMENTIA on donepezil HX DVT, FACTOR V LEIDEN, HX EMBOLIC STROKE PER RECORDS DVT PROPHYLAXIS On Coumadin, INR 2.3- holding Coumadin for any procedures vitamin k given in anticipation of surgery inr 1.2 today restarted Coumadin f/u inr CODE STATUS Full no mech ventilation per h and p DISPOSITION possible d/c in am pt/ot Lives with Chanel Justice (wishes to be updated by phone at [phone]) Follows with Dr. Ramires for primary care Vital Signs: Date Time Temp Pulse Resp B/P (MAP) Pulse Ox O2 Delivery O2 Flow Rate FiO2 02/17/17 08:30 Room Air 02/17/17 07:47 36.7 59 18 154/91 (112) 94 Room Air 02/17/17 00:00 94 Room Air 02/16/17 23:32 36.8 62 20 126/76 (93) 94 Room Air 02/16/17 19:18 Room Air 02/16/17 16:32 36.5 67 18 146/81 (102) 96 Room Air Lab Results: Results Past 24 Hours Test 02/16/17 17:14 02/16/17 20:03 02/17/17 06:37 02/17/17 07:38 Range/Units Bedside Glucose 257 138 116 70-99 mg/dl White Blood Count 8.92 4.8-10.8 K/uL Red Blood Count 3.88 4.7-6.1 M/uL Hemoglobin 11.6 14.0-18.0 g/dL Hematocrit 35.6 42-52 % Mean Corpuscular Volume 91.8 80-100 fL Mean Corpuscular Hemoglobin 29.9 25-34 pg Mean Corpuscular Hemoglobin Concent 32.6 32-36 g/dl Platelet Count 298 130-400 K/uL Mean Platelet Volume 10.8 7.4-10.4 fL Neutrophils (%) (Auto) 75.5 % Lymphocytes (%) (Auto) 11.0 % Monocytes (%) (Auto) 9.2 % Eosinophils (%) (Auto) 4.0 % Basophils (%) (Auto) 0.2 % Neutrophils # (Auto) 6.73 1.4-6.5 K/uL Lymphocytes # (Auto) 0.98 1.2-3.4 K/uL Monocytes # (Auto) 0.82 0.11-0.59 K/uL Eosinophils # (Auto) 0.36 0-0.5 K/uL Basophils # (Auto) 0.02 0-0.2 K/uL RDW Standard Deviation 47.0 36.4-46.3 fL RDW Coefficient of Variation 14.2 11.5-14.5 % Immature Granulocyte % (Auto) 0.1 % Immature Granulocyte # (Auto) 0.01 0.00-0.02 K/uL Prothrombin Time 11.1 9.0-12.0 SECONDS Prothromb Time International Ratio 1.0 0.9-1.1 Sodium Level 138 136-145 mmol/L Potassium Level 3.9 3.5-5.1 mmol/L Chloride Level 101 98-107 mmol/L Carbon Dioxide Level 33 21-32 mmol/L Anion Gap 4.0 3-11 mmol/L Blood Urea Nitrogen 17 7-18 mg/dl Creatinine 1.30 0.60-1.40 mg/dl Est Creatinine Clear Calc Drug Dose 51.5 ml/min Estimated GFR () 61.4 Estimated GFR (Non- 53.0 BUN/Creatinine Ratio 13.2 10-20 Random Glucose 109 70-99 mg/dl Calcium Level 8.7 8.5-10.1 mg/dl Magnesium Level 2.0 1.8-2.4 mg/dl Test 02/17/17 09:37 02/17/17 11:39 Range/Units Vancomycin Level Trough 17.9 SEE COMMENT mcg/ml Bedside Glucose 225 70-99 mg/dl
[2017-02-17 15:16] VITALS: BP 148/82; PULSE 63; TEMP 36.6; O2SAT 96
[2017-02-17] MEDS ORDERED: ENOXAPARIN 40 MG/0.4 ML SYR SQ ONE (15:30)
[2017-02-17] MEDS ORDERED: WARFARIN SOD 10 MG TAB PO SCH (16:00)
[2017-02-17] MEDS: INSULIN GLARGINE SOLOSTAR 100 UNITS/ML 3 ML PEN SC SCH (19:51)
[2017-02-18 00:29] VITALS: BP 167/92; PULSE 60; TEMP 36.6; O2SAT 95
[2017-02-18] MEDS: PIPERACILL/TAZOBAC IV 3.375 GM in DEXTROSE 5% 100ML IV SCH ×2 (01:59→09:53)
[2017-02-18] MEDS: VANCOMYCIN INJ 1,250 MG in SODIUM CHLORIDE 0.9% 250ML 250 ML IV SCH (01:59)
[2017-02-18 06:16] LABS: BASO % 0.3 %; BASO ABS # 0.02 K/uL (0-0.2); COMPLETE YES; EOS % 6.8 %; HEMATOCRIT 34.4 % (42-52); IG% 0.4 %; LYMPH ABS # 0.95 K/uL (1.2-3.4); MEAN CELL VOLUME 91.7 fL (80-100); MEAN CORPUSCULAR HEMOGLOBIN 30.4 pg (25-34); MEAN CORPUSCULAR HGB CONC 33.1 g/dl (32-36); MEAN PLATELET VOLUME 10.8 fL (7.4-10.4); MONO % 10.9 %; NEUT % 67.6 %; PLATELET COUNT 302 K/uL (130-400); RED BLOOD COUNT 3.75 M/uL (4.7-6.1); WHITE BLOOD COUNT 6.79 K/uL (4.8-10.8)
[2017-02-18 06:28] LABS: INR 1.1 (0.9-1.1); PROTHROMBIN TIME (PATIENT) 12.2 SECONDS (9.0-12.0)
[2017-02-18 06:36] VITALS: BP 191/93; PULSE 66; TEMP 36.3; O2SAT 98
[2017-02-18 06:47] LABS: BUN/CREATININE RATIO 16.4 (10-20); CALCIUM 8.2 mg/dl (8.5-10.1); CREATININE 1.3 mg/dl (0.60-1.40); MAGNESIUM 2.2 mg/dl (1.8-2.4); POTASSIUM 3.8 mmol/L (3.5-5.1)
[2017-02-18] MEDS ORDERED: ENOXAPARIN 40 MG/0.4 ML SYR SQ SCH (08:00)
[2017-02-18] MEDS: INSULIN ASPART 100 UNITS/ML 3 ML PEN SC SCH ×2 (09:00→12:35)
[2017-02-18] MEDS: ASPIRIN 81 MG ECTAB PO SCH (09:07)
[2017-02-18] MEDS: CHLORTHALIDONE 25 MG TAB PO SCH (09:08)
[2017-02-18] MEDS: POTASSIUM CHLORIDE 10 MEQ TABCR PO SCH (09:09)
[2017-02-18] MEDS: PANTOprazole SOD 40 MG TAB PO SCH (09:10)
[2017-02-18] MEDS: LISINOPRIL 20 MG TAB PO SCH (09:10)
[2017-02-18] MEDS: SERTRALINE HCL 50 MG TAB PO SCH (09:12)
[2017-02-18] MEDS: KETOROLAC TROMETHAMINE 15 MG/ML VIAL IV. PRN (10:07)
[2017-02-18 10:15] VITALS: O2SAT 96
[2017-02-18 10:25] VITALS: BP 158/81; PULSE 64; TEMP 36.5; O2SAT 96
[2017-02-18 11:25] VITALS: BP 151/68; PULSE 63; TEMP 36.5; O2SAT 96
[2017-02-18] MEDS ORDERED: ENOXAPARIN 80 MG/0.8 ML SYR SQ ONE (11:45)
[2017-02-18] MEDS ORDERED: TRAM-10 PO (12:12)
[2017-02-18] MEDS ORDERED: DOXY100T17 PO (12:12)
[2017-02-18] MEDS ORDERED: LCTX PO (12:12)
[2017-02-18] MEDS ORDERED: LVNIS120 SQ (12:12)
--- NOTE | 2017-02-18 12:21 | Discharge Instructions ---
Discharge Instructions Date of Service Feb 18, 2017. Admission Reason for Admission: Cellulitis Discharge Discharge Diagnosis / Problem: necrotic right big toe, cellulitis Discharge Goals Goal(s): Decrease discomfort, Improve function Activity Recommendations Activity Limitations: resume your previous activity . Instructions / Follow-Up Instructions / Follow-Up FOLLOWUP WITH FAMILY DOCTOR ON Jan AT 12:45PM FOLLOWUP WITH ORTHOPEDICS DR. CRUZ IN ONE WEEK( Please call [facility] after you get home today to schedule a follow-up appointment for 1 week (02.20.17 if patient is discharged) with Dr. Cruz at .) COUMADIN 7.5 MG DAILY UNTIL FURTHER NOTICE FROM COUMADIN CLINIC. TO TAKE LOVENOX SHOTS 120MG SUBCUTANEOUSLY DAILY UNTIL FURTHER INSTRUCTIONS FROM COUMADIN CLINIC. LAB: PT/INR IN 2 DAYS AND FOLLOW RESULTS WITH COUMADIN CLINIC. COUMADIN CLINIC NOTIFIED. RECOMMENDATIONS FROM ORTHOPEDICS: Harmonic Analyst Recommendations Date of Service Feb 16, 2017. Harmonic Analyst Recommendations ACTIVITY RECOMMENDATIONS: Limitations: No weight bearing to affected limb at all times. SPECIAL CARE INSTRUCTIONS: * Some drainage onto the dressing is normal and is no cause for alarm. * Some swelling is natural especially after walking. * When resting, keep your foot elevated above the level of your heart. * Call [facility] if you notice: -Increased drainage -Fever over 101 degrees F -Severe constant pain BANDAGE: * Leave bandage in place unless otherwise directed. * Home nursing may change the dressing daily or every other day. Adaptic must be cut to the size of the incision or ulceration then covered with gauze. * Keep bandage/cast dry at all times. FOLLOW UP VISIT WITH DR. CRUZ If appointment is not already scheduled: Please call [facility] after you get home today to schedule a follow-up appointment for 1 week (02.20.17 if patient is discharged) with Dr. Cruz at . Current Hospital Diet Patient's current hospital diet: Diabetes Type 2 Diet, AHA Diet (Heart Healthy) Discharge Diet Recommended Diet: AHA Diet (Heart Healthy), Diabetes Type 2 Diet Procedures Procedures Performed: Right Foot, Great Toe Amputation; Debridement Necrotic Eschar 5th Metatarsal Head; Debridement fifth metarsophalangeal joint capsule Pending Studies Studies pending at discharge: no Laboratory Results Hemoglobin A1c Test 02/13/17 06:04 Range/Units Estimated Average Glucose 131 mg/dl Hemoglobin A1c 6.2 H 4.5-5.6 % Medical Emergencies . Who to Call and When: Medical Emergencies: If at any time you feel your situation is an emergency, please call 911 immediately. . Non-Emergent Contact Non-Emergency issues call your: Primary Care Provider . . "Provider Documentation" section prepared by Minh Ward. . Harmonic Analyst Recommendations Harmonic Analyst Recommendations: ACTIVITY RECOMMENDATIONS: Limitations: No weight bearing to affected limb at all times. SPECIAL CARE INSTRUCTIONS: * Some drainage onto the dressing is normal and is no cause for alarm. * Some swelling is natural especially after walking. * When resting, keep your foot elevated above the level of your heart. * Call [facility] if you notice: -Increased drainage -Fever over 101 degrees F -Severe constant pain BANDAGE: * Leave bandage in place unless otherwise directed. * Home nursing may change the dressing daily or every other day. Adaptic must be cut to the size of the incision or ulceration then covered with gauze. * Keep bandage/cast dry at all times. FOLLOW UP VISIT WITH DR. CRUZ If appointment is not already scheduled: Please call [facility] after you get home today to schedule a follow-up appointment for 1 week (02.20.17 if patient is discharged) with Dr. Cruz at . VTE Core Measure Inpt VTE Proph given/why not?: Enoxaparin (Lovenox)SQ, Warfarin (Coumadin)
[2017-02-18] MEDS ORDERED: LOVENOX TEACHING KIT SCH (13:15)
[2017-02-18 13:33] VITALS: BP 151/68; PULSE 63; TEMP 36.5; O2SAT 96
--- NOTE | 2017-02-18 13:57 | Progress Note ---
Internal Med Progress Note Date of Service: Feb 18, 2017. Provider Documentation: SUBJECTIVE: resting comfortably s/p surgery 02/15/17 afebrile eating ok 'moved bowels as per patient ok for discharge OBJECTIVE: Vital Signs-as noted below Exam: General-alert and oriented. Not in distress ENT-normal hearing Neck-no neck masses Lungs-cta b/l no wheezing no crackles present Heart-s1 and s2 heard regular rhythm, no murmurs Abdomen-soft bowel sounds present non tender no distension Extremities s/p Left AKA. s/p Right big toe amputation -in dressing Neuro-alert and oriented moves extremities Lab data as noted below. ASSESSMENT & PLAN: RIGHT FOOT NECROSIS, CELLULITIS In setting of PAD, DM 2 (controlled in past, repeat A1c in AM) S/p right 1st toe partial amputation by podiatry Dr. Cornelius in December 2016, recently hospitalized at [facility] for IV abx, failed outpatient tx with Levaquin started on iv vanco and Zosyn arterial US unremarkable vascular surgery no plan for any renovascular intervention s/p right foot great toe amputation and I & D/debridement of the lateral 5th metatarsal head ulceration. tolerated procedure fine await final cx consult ID for abx for discharge- to d/c on po doxycycline for 2 weeks discharged home with home health f/u with pcp and orthopedics HEART MURMUR Recently discovered per family, no recent echo done echo moderate calcified Ef 60-65% f/u with pcp HYPERTENSION BP is stable on chlorthalidone and lisinopril DM TYPE 2 A1c was 6.3 in 10/2016 Holding metformin Continuing home Lantus NovoLog sliding scale d/c on home meds HISTORY OF CVA on aspirin, statin DEMENTIA on donepezil HX DVT, FACTOR V LEIDEN, HX EMBOLIC STROKE PER RECORDS DVT PROPHYLAXIS On Coumadin, INR 2.3- holding Coumadin for any procedures vitamin k given in anticipation of surgery restarted Coumadin inr 1.1 today discharging on Lovenox bridge Coumadin 7.5mg daily until further notice from Coumadin clinic to check pt/inr in couple of days notified Coumadin clinic discharging home with home health Vital Signs: Date Time Temp Pulse Resp B/P (MAP) Pulse Ox O2 Delivery O2 Flow Rate FiO2 02/18/17 11:25 36.5 63 20 151/68 (95) 96 Room Air 02/18/17 10:25 36.5 64 20 158/81 (106) 96 Room Air 02/18/17 10:15 96 Room Air 02/18/17 09:00 Room Air 02/18/17 06:36 36.3 66 18 191/93 (125) 98 Room Air 02/18/17 00:35 Room Air 02/18/17 00:29 36.6 60 20 167/92 (117) 95 Room Air 02/17/17 20:00 Room Air 02/17/17 15:16 36.6 63 18 148/82 (104) 96 Lab Results: Results Past 24 Hours Test 02/17/17 16:54 02/17/17 19:49 02/18/17 05:23 02/18/17 07:37 Range/Units Bedside Glucose 88 136 118 70-99 mg/dl White Blood Count 6.79 4.8-10.8 K/uL Red Blood Count 3.75 4.7-6.1 M/uL Hemoglobin 11.4 14.0-18.0 g/dL Hematocrit 34.4 42-52 % Mean Corpuscular Volume 91.7 80-100 fL Mean Corpuscular Hemoglobin 30.4 25-34 pg Mean Corpuscular Hemoglobin Concent 33.1 32-36 g/dl Platelet Count 302 130-400 K/uL Mean Platelet Volume 10.8 7.4-10.4 fL Neutrophils (%) (Auto) 67.6 % Lymphocytes (%) (Auto) 14.0 % Monocytes (%) (Auto) 10.9 % Eosinophils (%) (Auto) 6.8 % Basophils (%) (Auto) 0.3 % Neutrophils # (Auto) 4.59 1.4-6.5 K/uL Lymphocytes # (Auto) 0.95 1.2-3.4 K/uL Monocytes # (Auto) 0.74 0.11-0.59 K/uL Eosinophils # (Auto) 0.46 0-0.5 K/uL Basophils # (Auto) 0.02 0-0.2 K/uL RDW Standard Deviation 47.3 36.4-46.3 fL RDW Coefficient of Variation 14.3 11.5-14.5 % Immature Granulocyte % (Auto) 0.4 % Immature Granulocyte # (Auto) 0.03 0.00-0.02 K/uL Prothrombin Time 12.2 9.0-12.0 SECONDS Prothromb Time International Ratio 1.1 0.9-1.1 Sodium Level 138 136-145 mmol/L Potassium Level 3.8 3.5-5.1 mmol/L Chloride Level 101 98-107 mmol/L Carbon Dioxide Level 32 21-32 mmol/L Anion Gap 5.0 3-11 mmol/L Blood Urea Nitrogen 21 7-18 mg/dl Creatinine 1.30 0.60-1.40 mg/dl Est Creatinine Clear Calc Drug Dose 51.5 ml/min Estimated GFR () 61.4 Estimated GFR (Non- 53.0 BUN/Creatinine Ratio 16.4 10-20 Random Glucose 142 70-99 mg/dl Calcium Level 8.2 8.5-10.1 mg/dl Magnesium Level 2.2 1.8-2.4 mg/dl Test 02/18/17 11:39 Range/Units Bedside Glucose 185 70-99 mg/dl
--- NOTE | 2017-02-18 14:09 | Discharge Summary ---
Discharge Summary Date of Service Feb 18, 2017. Discharge Summary Admission Date: Feb 12, 2017 at 18:22 Discharge Date: Feb 18, 2017 Discharge Disposition: Home with services Principal Diagnosis: NECROTIC RIGHT BIG TOE S/P AMPUTATION CELLULITIS? Secondary Diagnoses/Problems: 1) Chronic anticoagulation Status: Chronic (2) Compression fracture of spine Status: Chronic (3) CVA (cerebral vascular accident) Permanent Comment: embolic per records, 12/2016 Status: Chronic (4) Dementia Status: Chronic (5) Depression Status: Chronic (6) Diabetic neuropathy Status: Chronic (7) DM type 2 (diabetes mellitus, type 2) Status: Chronic (8) Dyslipidemia Status: Chronic (9) Factor V Leiden Status: Chronic (10) GERD (gastroesophageal reflux disease) Status: Chronic (11) History of DVT (deep vein thrombosis) Status: Chronic (12) HTN (hypertension) Status: Chronic (13) Hyperlipidemia Status: Chronic (14) Osteoarthritis Status: Chronic Procedures: RT FOOT XRAY: Degenerative and postoperative changes including amputation distal phalanx great toe. No acute bony abnormality LOWER EXTREMITY US: 1. Limited study due to calcified vessels. 2. No significant stenotic process of the thigh arterial structures. 3. Nondiagnostic arterial structures of the arterial structures of the right lower leg due to vascular calcification/incompressibility. CXR: Suboptimal inspiration. No evidence of focal pulmonary consolidation. No evidence of overt failure. ECHO:Doppler and two dimentional ultrasound are discoordinate. Pt. most likely has moderate calcific aortic stenosis. * There is mild concentric left ventricular hypertrophy. * Ejection Fraction = 60-65%. * The right ventricular systolic function is normal. * There is trace mitral regurgitation. Consultations: ORTHOPEDICS VASCULAR SURGERY ID Medication Reconciliation New Medications: Doxycycline (Monohydrate) (Doxycycline Monohydrate) 100 Mg Tab 100 MG PO DAILY for 14 Days, #28 Lactobacillus Acidophilus (Lactinex) Tab 2 TAB PO BID for 15 Days, TAB Tramadol (Ultram) 50 Mg Tab 50 MG PO Q8H PRN for Pain, #20 TAB Enoxaparin (Lovenox) 120 Mg/0.8 Ml Inj 120 MG SQ DAILY for 7 Days Continued Medications: Aspirin (Aspirin Ec) 81 Mg Tab 81 MG PO DAILY Chlorthalidone (Chlorthalidone) 25 Mg Tab 25 MG PO DAILY Donepezil Hydrochloride (Donepezil Hcl) 23 Mg Tab 23 MG PO DAILY Insulin Glargine (Lantus Solostar) 100 Unit/Ml Inj 20 UNITS SC HS, PEN Adjust as directed Insulin Lispro (Human) (Humalog) 100 Unit/Ml Inj 6 UNITS SC AC Lisinopril (Zestril) 20 Mg Tab 20 MG PO DAILY, TAB Metformin Hcl (Glucophage) 1,000 Mg Tab 1000 MG PO BID, TAB Omeprazole (Omeprazole) 20 Mg Tab 20 MG PO BID Potassium Chloride (Micro-K Ext Rel) 10 Meq Capcr 10 MEQ PO DAILY, CAP Sertraline (Zoloft) 50 Mg Tab 50 MG PO DAILY, TAB Warfarin Sod (Jantoven) 5 Mg Tab 5 MG PO DIRECTED, TAB 5 mg by mouth 5x per week on Friday, Friday, Friday, , Friday Warfarin Sod (Coumadin) 5 Mg Tab 7.5 MG PO UD 7.5 mg by mouth twice per week on Friday and Friday Discontinued Medications: Levofloxacin (Levaquin) 500 Mg Tab 500 MG PO DAILY for 7 Days, #7 TAB Admission Information HPI (per Admitting provider): This is a 76 y/o male with PMH of DM 2, PAD, hx left AKA for nonhealing wound, history of CVA, factor V Leiden, hx DVT on Coumadin, and other problems listed below who was sent to the ED by PCP Dr. Ramires for right foot necrosis. Patient underwent right 1st toe partial amputation by obstetrics tech Dr. Cornelius at a surgical center in December 2016. states the the wound base turned black after the procedure with associated erythema, pain, swelling. Symptoms did not improve on Levaquin and was therefore hospitalized at [facility] from Feb 01- where he received IV antibiotics. states he was advised to see his vascular surgeon Dr. Davidson. Appointment was made for this FridayFeb 14. He was discharged on Levaquin, which was completed. Pt's states the toe was worsening and therefore he was started on another course of Levaquin called in by obstetrics tech Dr. Lyle, but still has no improvement. His also notes necrotic area with surrounding erythema overlying right 5th distal metatarsal starting about 1.5 weeks ago. Has associated sweats, but did not take temp at home. Pt was seen by PCP Dr. Ramires today and sent to ER for further evaluation. He is wheelchair bound. Does not use prosthesis. Has occasional dry cough. BSG's have been low 100's at home. Denies chest pain, SOB, vomiting, change in bowel or bladder movements. reports recently discovered heart murmur which has not been evaluated by echo. Has h/o MRSA. Physical Exam (per Admitting): General Appearance: WD/WN, no apparent distress Head: normocephalic, atraumatic Eyes: normal inspection, EOMI, sclerae normal ENT: hearing grossly normal, pharynx normal Neck: supple, trachea midline Respiratory/Chest: lungs clear, normal breath sounds, no respiratory distress, no accessory muscle use Cardiovascular: regular rate, rhythm, + systolic murmur Abdomen/GI: normal bowel sounds, non tender, soft Extremities/Musculoskelatal: no pedal edema, + pertinent finding (s/p left AKA, scar well healed. RLE no pretibial edema or calf tenderness. RLE warm, right DP pulse 1+) Neurologic/Psych: alert, normal mood/affect, oriented x 3 Skin: + pertinent finding (right 1st toe partially amputated, sutures in place, distal stump of toe with necrosis, + surrounding erythema and tenderness. lateral aspect of 5th distal metatarsal with necrosis and surrounding erythema and tenderness. no active drainage from either site.) Hospital Course RIGHT FOOT NECROSIS, CELLULITIS In setting of PAD, DM 2 (controlled in past, repeat A1c in AM) S/p right 1st toe partial amputation by podiatry Dr. Cornelius in December 2016, recently hospitalized at [facility] for IV abx, failed outpatient tx with Levaquin started on iv vanco and Zosyn arterial US unremarkable vascular surgery no plan for any renovascular intervention s/p right foot great toe amputation and I & D/debridement of the lateral 5th metatarsal head ulceration. tolerated procedure fine await final cx consult ID for abx for discharge- to d/c on po doxycycline for 2 weeks discharged home with home health f/u with pcp and orthopedics HEART MURMUR Recently discovered per family, no recent echo done echo moderate calcified Ef 60-65% f/u with pcp HYPERTENSION BP is stable on chlorthalidone and lisinopril DM TYPE 2 A1c was 6.3 in 10/2016 Holding metformin Continuing home Lantus NovoLog sliding scale d/c on home meds HISTORY OF CVA on aspirin, statin DEMENTIA on donepezil HX DVT, FACTOR V LEIDEN, HX EMBOLIC STROKE PER RECORDS DVT PROPHYLAXIS On Coumadin, INR 2.3- holding Coumadin for any procedures vitamin k given in anticipation of surgery restarted Coumadin inr 1.1 today discharging on Lovenox bridge Coumadin 7.5mg daily until further notice from Coumadin clinic to check pt/inr in couple of days notified Coumadin clinic discharging home with home health Total time spent on discharge = 40MINUTES This includes examination of the patient, discharge planning, medication reconciliation, and communication with other providers. Discharge Instructions Discharge Instructions Date of Service Feb 18, 2017. Admission Reason for Admission: Cellulitis Discharge Discharge Diagnosis / Problem: necrotic right big toe, cellulitis Discharge Goals Goal(s): Decrease discomfort, Improve function Activity Recommendations Activity Limitations: resume your previous activity . Instructions / Follow-Up Instructions / Follow-Up FOLLOWUP WITH FAMILY DOCTOR ON Jan AT 12:45PM FOLLOWUP WITH ORTHOPEDICS DR. CORONADO IN ONE WEEK( Please call [facility] after you get home today to schedule a follow-up appointment for 1 week (9..17 if patient is discharged) with Dr. Coronado at .) COUMADIN 7.5 MG DAILY UNTIL FURTHER NOTICE FROM COUMADIN CLINIC. TO TAKE LOVENOX SHOTS 120MG SUBCUTANEOUSLY DAILY UNTIL FURTHER INSTRUCTIONS FROM COUMADIN CLINIC. LAB: PT/INR IN 2 DAYS AND FOLLOW RESULTS WITH COUMADIN CLINIC. COUMADIN CLINIC NOTIFIED. RECOMMENDATIONS FROM ORTHOPEDICS: Coating Mixer Recommendations Date of Service Feb 16, 2017. Coating Mixer Recommendations ACTIVITY RECOMMENDATIONS: Limitations: No weight bearing to affected limb at all times. SPECIAL CARE INSTRUCTIONS: * Some drainage onto the dressing is normal and is no cause for alarm. * Some swelling is natural especially after walking. * When resting, keep your foot elevated above the level of your heart. * Call [facility] if you notice: -Increased drainage -Fever over 101 degrees F -Severe constant pain BANDAGE: * Leave bandage in place unless otherwise directed. * Home nursing may change the dressing daily or every other day. Adaptic must be cut to the size of the incision or ulceration then covered with gauze. * Keep bandage/cast dry at all times. FOLLOW UP VISIT WITH DR. CORONADO If appointment is not already scheduled: Please call [facility] after you get home today to schedule a follow-up appointment for 1 week (02.20.17 if patient is discharged) with Dr. Coronado at . Current Hospital Diet Patient's current hospital diet: Diabetes Type 2 Diet, AHA Diet (Heart Healthy) Discharge Diet Recommended Diet: AHA Diet (Heart Healthy), Diabetes Type 2 Diet Procedures Procedures Performed: Right Foot, Great Toe Amputation; Debridement Necrotic Eschar 5th Metatarsal Head; Debridement fifth metarsophalangeal joint capsule Pending Studies Studies pending at discharge: no Laboratory Results Hemoglobin A1c Test 02/13/17 06:04 Range/Units Estimated Average Glucose 131 mg/dl Hemoglobin A1c 6.2 H 4.5-5.6 % Medical Emergencies . Who to Call and When: Medical Emergencies: If at any time you feel your situation is an emergency, please call 911 immediately. . Non-Emergent Contact Non-Emergency issues call your: Primary Care Provider . . "Provider Documentation" section prepared by Minh Ward. . Coating Mixer Recommendations Coating Mixer Recommendations: ACTIVITY RECOMMENDATIONS: Limitations: No weight bearing to affected limb at all times. SPECIAL CARE INSTRUCTIONS: * Some drainage onto the dressing is normal and is no cause for alarm. * Some swelling is natural especially after walking. * When resting, keep your foot elevated above the level of your heart. * Call [facility] if you notice: -Increased drainage -Fever over 101 degrees F -Severe constant pain BANDAGE: * Leave bandage in place unless otherwise directed. * Home nursing may change the dressing daily or every other day. Adaptic must be cut to the size of the incision or ulceration then covered with gauze. * Keep bandage/cast dry at all times. FOLLOW UP VISIT WITH DR. CORONADO If appointment is not already scheduled: Please call [facility] after you get home today to schedule a follow-up appointment for 1 week (02.20.17 if patient is discharged) with Dr. Coronado at . VTE Core Measure Inpt VTE Proph given/why not?: Enoxaparin (Lovenox)SQ, Warfarin (Coumadin)
[2017-02-18] MEDS: TRAMADOL HCL 50 MG TAB PO PRN (14:38)
[2017-02-19] MEDS ORDERED: ENOXAPARIN 120 MG/0.8 ML SYR SQ SCH (08:00)
== END 2017-02-18 15:16 | disposition home health service (06) | DRG 504 ==
LOC: C.EDB 16:12 → C.4E 18:22 → ENRESERV 19:10
PROVIDERS: ADMIT Internal Medicine; ATTEND Internal Medicine
PROC: 0QBN0ZZ Excision of Right Metatarsal, Open Approach (ICD-10-PCS; principal; 2017-02-15 07:30)
PROC: 0Y6P0Z0 Detachment at Right 1st Toe, Complete, Open Approach (ICD-10-PCS; principal; 2017-02-15 07:30)
DX: T87.53 Necrosis of amputation stump, right lower extremity (principal); D68.51 Activated protein C resistance; L03.031 Cellulitis of right toe; L97.519 Non-pressure chronic ulcer of other part of right foot with unspecified severity; Z86.73 Personal history of transient ischemic attack (TIA), and cerebral infarction without residual deficits; F03.90 Unspecified dementia, unspecified severity, without behavioral disturbance, psychotic disturbance, mood disturbance, and anxiety; F32.9 Major depressive disorder, single episode, unspecified; E11.9 Type 2 diabetes mellitus without complications; K21.9 Gastro-esophageal reflux disease without esophagitis; Z86.718 Personal history of other venous thrombosis and embolism; I10 Essential (primary) hypertension; E78.5 Hyperlipidemia, unspecified; M19.90 Unspecified osteoarthritis, unspecified site; Z79.82 Long term (current) use of aspirin; Z79.4 Long term (current) use of insulin; Z79.01 Long term (current) use of anticoagulants; Z89.612 Acquired absence of left leg above knee